=== PATIENT | male | born 1960 | race Caucasian/White ===

== ENCOUNTER 2022-12-25 18:02 | Emergency (ER) | payer MEDICARE, BC, SELFPAY ==
[2022-12-25] VITALS (10 sets, daily range): BP systolic 117–157; BP diastolic 78–99; PULSE 57–87; RESP 17–18; TEMP 36.6–36.8; O2SAT 92–98; BMI 21.6
--- NOTE | 2022-12-25 18:08 | ECG_ITS ---
APPROVED REPORT Exam: Resting ECG HR:81 bpm ECG Measurements Heart Rate 81 AXES GA 179 P 69 QRSd 86 QRS 79 QT 360 T 71 QTc 397 Conclusion SINUS RHYTHM NORMAL ECG UNCONFIRMED REPORT Electronically signed by : George Beltre MD 12/26/2022 21:28:16
--- NOTE | 2022-12-25 18:08 | XR_ITS ---
PROCEDURE INFORMATION: Exam: XR Chest Exam date and time: 12/25/2022 6:13 PM Age: 62 years old Clinical indication: Pain; Chest pressure; Additional info: Chest pain TECHNIQUE: Imaging protocol: Radiologic exam of the chest. Views: 1 view. COMPARISON: No relevant prior studies available. FINDINGS: Lungs: No evidence of pneumonia or interstitial edema. Pleural spaces: Unremarkable. No pleural effusion. No pneumothorax. Heart/Mediastinum: Unremarkable. No cardiomegaly. Bones/joints: Unremarkable. IMPRESSION: No evidence of pneumonia or interstitial edema.
[2022-12-25 18:23] LABS: Basophils % 0.6 % (0.1-2.0); Eosinophils # 0.1 K/mm3 (0.0-0.4); Hematocrit 44.5 % (42.0-52.0); Hemoglobin 14.8 g/dL (14.1-18.0); Lymphocytes # 2.3 K/mm3 (0.7-4.5); Lymphocytes % 59.2 % (10-50); Mean Corpuscular HGB Conc 33.3 g/dL (31.8-35.4); Mean Corpuscular Hemoglobin 31.2 pg (27.0-31.2); Mean Corpuscular Volume 93.7 fl (80-94); Monocytes # 0.3 K/mm3 (0.1-1.0); Monocytes % 7.8 % (1.7-9.3); Neutrophils # 1.2 K/mm3 (1.8-7.8); Neutrophils % 29.4 % (37.0-80.0); Platelet Count 172 K/mm3 (142-424); Red Blood Count 4.75 M/mm3 (4.60-6.20); Red Cell Distribution Width 13.6 % (11.5-17.5); White Blood Count 3.9 K/mm3 (4.8-10.8)
[2022-12-25 18:24] LABS: Chloride 89 mmol/L (98-107); Sodium 127 mmol/L (136-145)
[2022-12-25 18:25] LABS: Potassium 4.3 mmoL/L (3.5-5.1)
[2022-12-25 18:27] LABS: Alanine Aminotransferase 17 U/L (12-78); Anion Gap 14.3 mEq/L (5-15); Aspartate Amino Transferase 44 U/L (17-59); Blood Urea Nitrogen 8 mg/dl (9-20); Carbon Dioxide 28 mmol/L (22.0-30.0); Creatinine Clearance Estimated 87 mL/min (50-200); Estimated Glomerular Filt Rate 86 ml/min (>60); GFR (African American) 104 ML/MIN (>60)
[2022-12-25 18:28] LABS: Albumin Level 4.3 g/dl (3.5-5.0); Albumin/Globulin Ratio 1.2 (1.1-1.8); Alkaline Phosphatase 67 U/L (38-126); Bilirubin,Total 0.3 mg/dl (0.2-1.3); Calcium 9.2 mg/dl (8.4-10.2); Globulin 3.6 g/dL (1.3-3.2); Glucose 75 mg/dl (74-100); MANUAL DIFFERENTIAL MANUAL DIFFERENTIAL (MANUAL DIFF); Total Protein,Serum 7.9 g/dl (6.3-8.2)
[2022-12-25 18:33] LABS: INR 1.02 (0.9-1.1)
[2022-12-25 18:40] LABS: Troponin I < 0.01 ng/ml (0.00-0.034)
[2022-12-25 19:29] LABS: Eosinophils % 1 % (0-3); Lymphocytes % 75 % (10-50); Monocytes % 2 % (2-9); Neutrophils % 22 % (42-76); Total Cells Counted 100
[2022-12-25 19:30] LABS: Platelet Estimate Normal; RBC Morphology Normal
--- NOTE | 2022-12-25 20:11 | HMH.EDGENADL ---
Discharge Plan Disposition Chief Complaint: Chest Pain Prescriptions Prescriptions: No Action benztropine 0.5 mg Tablet 0.5 mg PO DAILY trazodone 50 mg Tablet 50 mg PO HS atorvastatin 10 mg Tablet 10 mg PO HS fluphenazine HCl 10 mg Tablet 10 mg PO BID olanzapine 10 mg Tablet 10 mg PO DAILY Colace 50 mg Capsule 100 mg PO DAILY melatonin 3 mg Tablet 3 mg PO HS PRN (Reason: Insomnia) omeprazole 40 mg Capsule,Delayed Release(Dr/Ec) 40 mg PO DAILY divalproex 500 mg Tablet Extended Release 24 Hr 500 mg PO DAILY fluticasone propionate [Flonase] 50 mcg/actuation [place],Suspension 2 spray INTRANASAL DAILY Rx Instructions: administer into each nostril prazosin 2 mg Capsule 2 mg PO HS duloxetine 20 mg Capsule,Delayed Release(Dr/Ec) 20 mg PO DAILY sodium chloride 1,000 mg Tablet,Soluble 1,000 mg PO DAILY Referrals Follow up/Referrals: Provider,Referral, [Primary Care Provider] - See instructions Carlin Gr MD [Staff Physician] - See instructions (Shortness of breath, chest pain, smoking, numerous cardiac risk factors. Heart score 3) Clinical Impressions Clinical Impression: Chest pain Discharge ED Provider: Gian Wagoner General Adult HPI General Chief complaint: Chest Pain Stated complaint: Chest tightness/pain Time Seen by Provider: 12/25/22 18:13 Mode of Arrival: EMS Source of Information: Patient and EMS Limitations: No Limitations Description of Symptoms (Recalled from ER Triage Doc. by RN): 62 M presents via EMS from [facility] after alerting staff of chest pain with chest tightness. Patient reports this radiated to his upper back and neck. Patient denies SOA. Patient was given 324 mg ASA, 1 nitro SL. Patient arrives here NAD, VSS, and no complaints of tighness or pain at this time. History of Present Illness HPI narrative: Is a 62-year-old male presenting with chest tightness. Patient states that he was sitting on the couch smoking a cigarette when he began developing chest tightness. Denies overt shortness of breath, nausea, vomiting, diaphoresis, neurologic deficits. Chest pressure was substernal, radiated to his left neck. EMS was called. Patient was given aspirin and symptoms resolved prior to arrival. Related Data Home Medications Medication Instructions Recorded Confirmed atorvastatin 10 mg tablet 10 mg PO HS Cholesterol 12/25/22 12/25/22 benztropine 0.5 mg tablet 0.5 mg PO DAILY Parkinson's disease 12/25/22 12/25/22 divalproex 500 mg tablet,extended 500 mg PO DAILY Seizure 12/25/22 12/25/22 release 24 hr docusate sodium 50 mg capsule 100 mg PO DAILY Chronic 12/25/22 12/25/22 constipation duloxetine 20 mg capsule,delayed 20 mg PO DAILY Psych 12/25/22 12/25/22 release fluphenazine HCl 10 mg tablet 10 mg PO BID Psych 12/25/22 12/25/22 fluticasone propionate 50 2 spray intranasal DAILY Allergy 12/25/22 12/25/22 mcg/actuation nasal symptoms spray,suspension melatonin 3 mg tablet 3 mg PO HS PRN Insomnia 12/25/22 12/25/22 olanzapine 10 mg tablet 10 mg PO DAILY Psych 12/25/22 12/25/22 omeprazole 40 mg capsule,delayed 40 mg PO DAILY Acid reflux 12/25/22 12/25/22 release prazosin 2 mg capsule 2 mg PO HS RLS 12/25/22 12/25/22 sodium chloride 1,000 mg soluble 1,000 mg PO DAILY Chronic 12/25/22 12/25/22 tablet hyponatremia trazodone 50 mg tablet 50 mg PO HS Insomnia 12/25/22 12/25/22 Allergies Allergy/AdvReac Type Severity Reaction Status Date / Time No Known Allergies Allergy Verified 12/25/22 18:07 [facility] Disclaimer: The information contained in this section may have been updated after the patient was seen, as this information can be updated by other users. Medical History (Updated 12/25/22 @ 20:15 by Gian Wagoner MD) Acid reflux Anxiety Chronic constipation Chronic hyponatremia Chronic pain Epilepsy High cholesterol Insomnia MDD (major depressive disorder) Basil
--- NOTE | 2022-12-25 21:06 | PC.NURSE ---
PT RECIEVED CUP OF TATOR SOUP AND SANDWHICH WITH A PEPSI TO DRINK
[2022-12-25 21:37] LABS: Troponin I 0.03 ng/ml (0.00-0.034)
--- NOTE | 2022-12-25 22:08 | PC.NURSE ---
Spoke with Brigitte Allan advised she would try to find him a ride back.
--- NOTE | 2022-12-25 22:30 | PC.NURSE ---
Called [facility] again for a ride update Brigitte advised I'm still in the process
--- NOTE | 2022-12-25 23:21 | PC.NURSE ---
[facility]any Allan called us back to report her production control supervisor is unable to collect pt and asking for an officer to slate picker pt. I advised them they may call dispatch to inquire of an officer taxiing pt to [facility].
--- NOTE | 2022-12-26 00:03 | PC.NURSE ---
Rounded on pt, cleared his table of cups & trash. Removed IV, dressing applied. Pt requesting another cup of coffee. Will obtain is MD allows. [facility] Allan called and stated I left a voicemail for dispatch .
--- NOTE | 2022-12-26 00:05 | PC.NURSE ---
[employer] called to ask if an officer could collect pt, they will ask and call back.
--- NOTE | 2022-12-26 00:10 | PC.NURSE ---
[employer] notified us that an officer is in route to taxi pt back to [facility].
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
== END 2022-12-26 00:20 | disposition home or self-care (01) ==
PROVIDERS: Emergency Provider Emergency Medicine
DX: R07.9 Chest pain, unspecified (principal); M54.2 Cervicalgia; M54.6 Pain in thoracic spine; G40.919 Epilepsy, unspecified, intractable, without status epilepticus; K21.9 Gastro-esophageal reflux disease without esophagitis; F41.9 Anxiety disorder, unspecified; E87.1 Hypo-osmolality and hyponatremia; E78.00 Pure hypercholesterolemia, unspecified; F32.9 Major depressive disorder, single episode, unspecified; G20 Parkinson's disease; F25.9 Schizoaffective disorder, unspecified; F17.210 Nicotine dependence, cigarettes, uncomplicated
CPT/HCPCS: 71045; 80053; 84484; 85007; 85025; 85610; 85730; 93005; 96360; 99285

== ENCOUNTER 2023-01-15 21:02 | Observation (INO) | payer MEDICARE, BC, SELFPAY ==
[2023-01-15 21:02] VITALS: BP 160/115; PULSE 77; RESP 18; TEMP 37.2; O2SAT 99; BMI 25.1
--- NOTE | 2023-01-15 21:14 | XR_ITS ---
PROCEDURE INFORMATION: Exam: XR Chest Exam date and time: 01/15/2023 9:24 PM Age: 62 years old Clinical indication: Pain; Angina pectoris; Additional info: Chest pain TECHNIQUE: Imaging protocol: Radiologic exam of the chest. Views: 1 view. COMPARISON: CR XR CHEST PORTABLE 12/25/2022 6:13 PM FINDINGS: Lungs: Unremarkable. No consolidation. Pleural spaces: Unremarkable. No pleural effusion. No pneumothorax. Heart/Mediastinum: Aortic atherosclerosis. No cardiomegaly. Bones/joints: Unremarkable. IMPRESSION: No acute findings.
--- NOTE | 2023-01-15 21:14 | ECG_ITS ---
APPROVED REPORT Exam: Resting ECG HR:76 bpm ECG Measurements Heart Rate 76 AXES NC 181 P 73 QRSd 90 QRS 82 QT 366 T 78 QTc 397 Conclusion SINUS RHYTHM NORMAL ECG UNCONFIRMED REPORT Electronically signed by : George Beltre MD 01/16/2023 07:09:37
[2023-01-15 21:30] VITALS: BP 158/105; PULSE 71; O2SAT 100
--- NOTE | 2023-01-15 21:56 | PC.NURSE ---
Dr. River at [facility]
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
[2023-01-15 22:00] VITALS: BP 145/112; PULSE 76; O2SAT 93
[2023-01-15 22:05] LABS: Basophils % 0.4 % (0.1-2.0); Eosinophils # 0.2 K/mm3 (0.0-0.4); Eosinophils % 3.6 % (0.1-12.0); Hematocrit 42.3 % (42.0-52.0); Hemoglobin 13.6 g/dL (14.1-18.0); Lymphocytes % 48.3 % (10-50); Mean Corpuscular HGB Conc 32.1 g/dL (31.8-35.4); Mean Corpuscular Hemoglobin 30.4 pg (27.0-31.2); Mean Corpuscular Volume 94.9 fl (80-94); Mean Platelet Volume 7.7 fl (7.4-10.4); Monocytes # 0.4 K/mm3 (0.1-1.0); Monocytes % 9.1 % (1.7-9.3); Neutrophils # 1.6 K/mm3 (1.8-7.8); Neutrophils % 38.7 % (37.0-80.0); Platelet Count 183 K/mm3 (142-424); Red Blood Count 4.46 M/mm3 (4.60-6.20); Red Cell Distribution Width 13.6 % (11.5-17.5); White Blood Count 4.2 K/mm3 (4.8-10.8)
[2023-01-15 22:06] LABS: Chloride 87 mmol/L (98-107)
[2023-01-15 22:07] LABS: Sodium 123 mmol/L (136-145)
[2023-01-15 22:09] LABS: Alanine Aminotransferase 19 U/L (12-78); Albumin Level 4.1 g/dl (3.5-5.0); Alkaline Phosphatase 73 U/L (38-126); Aspartate Amino Transferase 41 U/L (17-59); Bilirubin,Total 0.2 mg/dl (0.2-1.3); Blood Urea Nitrogen 9 mg/dl (9-20); Carbon Dioxide 33 mmol/L (22.0-30.0); Creatinine Clearance Estimated 86 mL/min (50-200); Estimated Glomerular Filt Rate 76 ml/min (>60); GFR (African American) 92 ML/MIN (>60); Potassium 4.2 mmoL/L (3.5-5.1)
[2023-01-15 22:10] LABS: Albumin/Globulin Ratio 1.2 (1.1-1.8); Anion Gap 7.2 mEq/L (5-15); Globulin 3.4 g/dL (1.3-3.2); Glucose 51 mg/dl (74-100); Total Protein,Serum 7.5 g/dl (6.3-8.2)
--- NOTE | 2023-01-15 22:15 | PC.NURSE ---
Pt given beverage by Mac Anna RN
[2023-01-15 22:23] LABS: Troponin I < 0.01 ng/ml (0.00-0.034)
[2023-01-15 22:30] VITALS: BP 170/103; PULSE 62; O2SAT 98
[2023-01-15 23:00] VITALS: BP 161/109; PULSE 71; O2SAT 95
--- NOTE | 2023-01-15 23:05 | PC.NURSE ---
PATIENT ADMITTED TO [facility] WITH DX OF HYPONATREMIA TO SERVICE OF HOSPITALIST.
[2023-01-15 23:13] LABS: Coronavirus 19, PCR Not Detected (NotDetected); Influenza A, PCR Not Detected (NotDetected); Influenza B, PCR Not Detected (NotDetected)
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
--- NOTE | 2023-01-15 23:57 | PC.NURSE ---
report called to Anya JUNE
[2023-01-16] VITALS (7 sets, daily range): BP systolic 125–180; BP diastolic 44–112; PULSE 57–73; RESP 16–19; TEMP 36.2–37.2; O2SAT 93–99; BMI 25.2
--- NOTE | 2023-01-16 00:11 | PC.NURSE ---
PT ARRIVED TO FLOOR AT THIS TIME
[2023-01-16 00:52] LABS: POC Glucose,Bedside 74 (70-110)
[2023-01-16 01:28] LABS: Troponin I < 0.01 ng/ml (0.00-0.034)
--- NOTE | 2023-01-16 03:34 | PC.NURSE ---
RN unable to confirm medication list, Patient does not know medications.
--- NOTE | 2023-01-16 04:51 | PC.NURSE ---
Patient arrived from ER this shift. Has had multiple snacks and drinks. Admission was done except for medication, patient does not know current medications and does not have a list. No issues were stated by patient
[2023-01-16 06:25] LABS: Basophils % 0.4 % (0.1-2.0); Eosinophils # 0.2 K/mm3 (0.0-0.4); Eosinophils % 6.4 % (0.1-12.0); Hematocrit 44.1 % (42.0-52.0); Hemoglobin 14.1 g/dL (14.1-18.0); Lymphocytes # 1.6 K/mm3 (0.7-4.5); Lymphocytes % 46.4 % (10-50); Mean Corpuscular HGB Conc 31.9 g/dL (31.8-35.4); Mean Corpuscular Hemoglobin 30.5 pg (27.0-31.2); Mean Corpuscular Volume 95.7 fl (80-94); Mean Platelet Volume 7.7 fl (7.4-10.4); Monocytes # 0.3 K/mm3 (0.1-1.0); Monocytes % 8.5 % (1.7-9.3); Neutrophils # 1.3 K/mm3 (1.8-7.8); Neutrophils % 38.2 % (37.0-80.0); Platelet Count 198 K/mm3 (142-424); Red Blood Count 4.61 M/mm3 (4.60-6.20); Red Cell Distribution Width 13.6 % (11.5-17.5); White Blood Count 3.5 K/mm3 (4.8-10.8)
[2023-01-16 06:54] LABS: Troponin I < 0.01 ng/ml (0.00-0.034)
[2023-01-16 07:01] LABS: Alanine Aminotransferase 15 U/L (12-78); Albumin Level 3.8 g/dl (3.5-5.0); Albumin/Globulin Ratio 1.3 (1.1-1.8); Alkaline Phosphatase 64 U/L (38-126); Anion Gap 7.4 mEq/L (5-15); Aspartate Amino Transferase 34 U/L (17-59); Bilirubin,Total 0.2 mg/dl (0.2-1.3); Blood Urea Nitrogen 9 mg/dl (9-20); Calcium 8.9 mg/dl (8.4-10.2); Carbon Dioxide 34 mmol/L (22.0-30.0); Chloride 96 mmol/L (98-107); Creatinine Clearance Estimated 86 mL/min (50-200); Estimated Glomerular Filt Rate 76 ml/min (>60); GFR (African American) 92 ML/MIN (>60); Globulin 2.9 g/dL (1.3-3.2); Glucose 92 mg/dl (74-100); Potassium 4.4 mmoL/L (3.5-5.1); Sodium 133 mmol/L (136-145); Total Protein,Serum 6.7 g/dl (6.3-8.2)
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
[2023-01-16 08:14] LABS: Chloride 99 mmol/L (98-107); Potassium 4.2 mmoL/L (3.5-5.1); Sodium 133 mmol/L (136-145)
[2023-01-16 08:17] LABS: Anion Gap 7.2 mEq/L (5-15); Blood Urea Nitrogen 8 mg/dl (9-20); Carbon Dioxide 31 mmol/L (22.0-30.0); Creatinine Clearance Estimated 78 mL/min (50-200); Estimated Glomerular Filt Rate 68 ml/min (>60); GFR (African American) 83 ML/MIN (>60)
[2023-01-16 08:18] LABS: Calcium 8.7 mg/dl (8.4-10.2); Glucose 81 mg/dl (74-100)
[2023-01-16 08:49] LABS: Thyroid Stimulating Hormone 1.64 uIU/mL (0.465-4.68)
--- NOTE | 2023-01-16 11:37 | SW/DCPLANNER ---
Addendum entered by Lilia Russell 01/17/23 14:39: I have arranged [employer] for this patient. Addendum entered by Lilia Russell 01/17/23 13:37: The plan for this patient is to discharge back to [facility] today: I will arrange [employer]. Original Note: Patient currently resides at [facility]. The plan for this patient is to return back to [facility] once medically stable for discharge. I have updated Tracey nino/ [facility] that patient may be ready for discharge tomorrow.
--- NOTE | 2023-01-16 11:47 | HMH.PHAINT1 ---
Pharmacy Intervention Comments: Patient's home medications reviewed and verified using fax from [facility]. -Matt Munguia, PharmD student
[2023-01-16 12:26] LABS: Blood Urea Nitrogen 9 mg/dl (9-20); Calcium 9.1 mg/dl (8.4-10.2); Carbon Dioxide 36 mmol/L (22.0-30.0); Chloride 96 mmol/L (98-107); Creatinine Clearance Estimated 86 mL/min (50-200); Estimated Glomerular Filt Rate 76 ml/min (>60); GFR (African American) 92 ML/MIN (>60); Glucose 86 mg/dl (74-100); Potassium 5.1 mmoL/L (3.5-5.1)
[2023-01-16 12:35] LABS: Anion Gap 6.1 mEq/L (5-15); Sodium 133 mmol/L (136-145)
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
[2023-01-16 17:20] LABS: Chloride 95 mmol/L (98-107); Sodium 132 mmol/L (136-145)
[2023-01-16 17:23] LABS: Blood Urea Nitrogen 11 mg/dl (9-20); Carbon Dioxide 35 mmol/L (22.0-30.0); Creatinine Clearance Estimated 72 mL/min (50-200); Estimated Glomerular Filt Rate 62 ml/min (>60); GFR (African American) 75 ML/MIN (>60); Glucose 88 mg/dl (74-100)
[2023-01-17] VITALS: BP 127/78; PULSE 75; RESP 16; TEMP 36.9; O2SAT 93
[2023-01-17 04:00] VITALS: BP 90/54; PULSE 72; RESP 16; TEMP 36.3; O2SAT 93; BMI 25.2
--- NOTE | 2023-01-17 04:19 | PC.NURSE ---
Patient has rested tonight. Has been up drinking coffee, pop, and eating snacks. Patient is concerned about the amount of fluids he is getting. RN informed him of why the fluids are needed. Patient is agreeable to the plan. No other issues were stated by patient
[2023-01-17 06:22] LABS: Basophils % 0.3 % (0.1-2.0); Eosinophils # 0.2 K/mm3 (0.0-0.4); Eosinophils % 4.3 % (0.1-12.0); Hematocrit 40.4 % (42.0-52.0); Hemoglobin 13.2 g/dL (14.1-18.0); Lymphocytes # 1.6 K/mm3 (0.7-4.5); Lymphocytes % 43.8 % (10-50); Mean Corpuscular HGB Conc 32.6 g/dL (31.8-35.4); Mean Corpuscular Hemoglobin 30.7 pg (27.0-31.2); Mean Corpuscular Volume 94.2 fl (80-94); Mean Platelet Volume 7.9 fl (7.4-10.4); Monocytes # 0.5 K/mm3 (0.1-1.0); Monocytes % 14.2 % (1.7-9.3); Neutrophils # 1.4 K/mm3 (1.8-7.8); Neutrophils % 37.4 % (37.0-80.0); Platelet Count 172 K/mm3 (142-424); Red Blood Count 4.29 M/mm3 (4.60-6.20); Red Cell Distribution Width 13.6 % (11.5-17.5); White Blood Count 3.7 K/mm3 (4.8-10.8)
[2023-01-17 06:33] LABS: Anion Gap 7.3 mEq/L (5-15); Blood Urea Nitrogen 10 mg/dl (9-20); Calcium 8.8 mg/dl (8.4-10.2); Carbon Dioxide 32 mmol/L (22.0-30.0); Chloride 95 mmol/L (98-107); Creatinine Clearance Estimated 86 mL/min (50-200); Estimated Glomerular Filt Rate 76 ml/min (>60); GFR (African American) 92 ML/MIN (>60); Glucose 93 mg/dl (74-100); Potassium 3.3 mmoL/L (3.5-5.1); Sodium 131 mmol/L (136-145)
[2023-01-17 07:50] VITALS: BP 134/90; PULSE 59; RESP 16; TEMP 36.9; O2SAT 95
[2023-01-17 08:00] VITALS: O2SAT 95
[2023-01-17 11:08] VITALS: BP 166/90; PULSE 69; RESP 16; TEMP 37.2; O2SAT 97
[2023-01-17 11:31] LABS: Sodium, Urine 62 mmol/L (Not Estab.)
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
--- NOTE | 2023-01-17 13:57 | PC.NURSE ---
report called to nitesh at this time
[2023-01-19 03:38] LABS: Osmolality, Urine 203 mOsmol/kg (.)
== END 2023-01-17 15:31 | disposition home or self-care (01) ==
LOC: ER 23:03 → 2ND 23:55
PROVIDERS: Internal Medicine; Nurse Practitioner Family; Admitting Provider Internal Medicine; Emergency Provider Student in an Organized Health Care Education/Training Program; PCP Emergency Medicine; Visit Provider Internal Medicine
DX: E87.1 Hypo-osmolality and hyponatremia (principal); S09.8XXA Other specified injuries of head, initial encounter; E22.2 Syndrome of inappropriate secretion of antidiuretic hormone; S20.219A Contusion of unspecified front wall of thorax, initial encounter; G40.919 Epilepsy, unspecified, intractable, without status epilepticus; F32.9 Major depressive disorder, single episode, unspecified; F25.9 Schizoaffective disorder, unspecified; Y04.0XXA Assault by unarmed brawl or fight, initial encounter; Z79.899 Other long term (current) drug therapy
CPT/HCPCS: G0378; 36415; 71045; 80048; 80053; 82533; 82962; 83930; 83935; 84300; 84443; 84484; 85025; 87636; 93005; 99285

== ENCOUNTER 2025-04-08 09:05 | Inpatient (IN) | payer MEDICARE, OTHER, SELFPAY ==
[2025-04-08] VITALS (22 sets, daily range): BP systolic 91–152; BP diastolic 55–101; PULSE 58–106; RESP 13–23; TEMP 35.7–36.9; O2SAT 88–99; BMI 27.1; BMI 24.5
--- NOTE | 2025-04-08 09:09 | ECG_ITS ---
APPROVED REPORT Exam: Resting ECG HR:66 bpm ECG Measurements Heart Rate 66 AXES CO 182 P 77 QRSd 95 QRS 77 QT 416 T 82 QTc 429 Conclusion Normal sinus rhythm Normal axis Normal intervals No STEMI Electronically signed by : José Miguel Palma, 04/08/2025 17:01:39
--- NOTE | 2025-04-08 09:18 | XR_ITS ---
FINAL REPORT CLINICAL HISTORY: Encephalopathy COMPARISON: 01/15/2023 FINDINGS: A portable view of the chest was obtained. Cardiac and mediastinal silhouettes are within normal limits. There is a subtle right upper lobe opacity present, and pneumonia is not excluded. There is no pleural effusion or pneumothorax. IMPRESSION: Subtle right upper lobe opacity, pneumonia not excluded. Consider PA and lateral views of the chest for further evaluation. Reviewed, Interpreted and Dictated by Annabel Greco MD Transcribed by Rosetta Cuenca Authenticated and [facility]
--- NOTE | 2025-04-08 09:22 | CT_ITS ---
FINAL REPORT TECHNIQUE: Thin section axial images were obtained from skull base to vertex without contrast. Coronal and sagittal reconstruction images were obtained from the axial data. Exam was performed using dose reduction techniques such as automated exposure control, adjustment of the mA and kV according to patient size, and use of iterative reconstruction technique. This study was performed with techniques to keep radiation doses as low as reasonably achievable (ALARA). Individualized dose reduction techniques using automated exposure control or adjustment of mA and/or kV according to the patient's size were employed. CLINICAL HISTORY: Encephalopathy COMPARISON: None FINDINGS: There is no mass effect or midline shift. There is no hydrocephalus. There is no acute intracranial hemorrhage or large infarct. There is a chronic right subdural hygroma measuring 5 mm in thickness. The posterior fossa is without acute abnormality. The basilar cisterns are preserved. The soft tissues are without acute abnormality. No acute osseous abnormality is identified. IMPRESSION: No acute hemorrhage or large infarct is identified. Reviewed, Interpreted and Dictated by Annabel Greco MD Transcribed by Rosetta Cuenca Authenticated and [facility]
[2025-04-08 09:28] LABS: Hematocrit 39.0 % (42.0-52.0); Hemoglobin 13.5 g/dL (14.1-18.0); Immature Granulocytes % 0.3 %; Mean Corpuscular HGB Conc 34.6 g/dL (31.8-35.4); Mean Corpuscular Hemoglobin 31.3 pg (27.0-31.2); Mean Corpuscular Volume 90.5 fl (80-94); Nucleated Red Blood Cells % 0 %; Platelet Count 180 K/mm3 (142-424); Red Blood Count 4.31 M/mm3 (4.60-6.20); Red Cell Distribution Width-SD 40.2 fL; White Blood Count 3.3 K/mm3 (4.8-10.8)
--- NOTE | 2025-04-08 09:28 | PC.NURSE ---
called respiratory about the VBG
--- NOTE | 2025-04-08 09:28 | PC.NURSE ---
pt is starting to arouse more. i attempted to get a rectal temp and straight cath and he adamantly refused @ this time.
[2025-04-08 09:29] LABS: Lactate Venous 1.2 mmol/L (0.4-2.0); VBG HCO3 24.5 mmol/L (23-30); VBG PCO2 57.0 mmol/L (35-51); VBG PH 7.25 mmol/L (7.31-7.41); VBG PO2 44.1 mmol/L (28-40)
--- NOTE | 2025-04-08 09:33 | PC.NURSE ---
fsbs 99
--- NOTE | 2025-04-08 09:46 | PC.NURSE ---
pt allowed staff to obtain a cathed urine sample
[2025-04-08 09:51] LABS: Microscopic, Urine URINE MICROSCOPIC (MICROSCOPIC)
[2025-04-08 09:57] LABS: Bilirubin,Urine Negative (Negative); Color,Urine YELLOW (Yellow); Glucose,Urine (UA) Negative (Negative); Ketones,Urine Negative (Negative); Leukocyte Esterase,Urine Negative (Negative); PH,Urine 7.0 (5.0-8.5); Protein,Urine Negative (Negative); Specific Gravity, Urine 1.015 (1.005-1.030); Urobilinogen,Urine 1.0 EU/dl (0.2)
--- NOTE | 2025-04-08 10:04 | PC.NURSE ---
attempted to call shayla rodrigez to obtain pts baseline mental status. they havent answered
[2025-04-08 10:06] LABS: Free T4 (Free Thyroxine) 1.08 ng/dl (0.78-2.19)
[2025-04-08] MEDS: IPRATROPIUM/ALBUTEROL 3 ML NEB 9 ML IH (10:07)
[2025-04-08] MEDS: METHYLPREDNISOLONE SOD SUCC 125MG VIAL 125 MG IV (10:07)
[2025-04-08 10:11] LABS: Amphetamine/Metha Screen,Urine Negative ng/ml (<1000)
[2025-04-08 10:12] LABS: Barbiturates Screen,Urine Negative ng/ml (<200); Benzodiazepines Screen,Urine Negative ng/ml (<200)
[2025-04-08 10:14] LABS: Methadone Screen,Urine Negative ng/ml (<300)
[2025-04-08 10:15] LABS: Opiate Screen,Urine Negative ng/ml (<300); Phencyclidine Screen,Urine Negative ng/ml (<25)
[2025-04-08 10:18] LABS: Bacteria,Urine Trace /lpf; WBC,Urine Occasional #/hpf (0-3)
--- NOTE | 2025-04-08 10:34 | PC.NURSE ---
spoke to respiratory regarding bipap
[2025-04-08 10:38] LABS: Hepatitis C Ab Qual. W/ RFX NEGATIVE (Negative)
--- NOTE | 2025-04-08 10:42 | PC.NURSE ---
respiratory in room, bipap in place
--- NOTE | 2025-04-08 10:44 | HMH.EDGENADL ---
Discharge Plan Disposition Patient Disposition: Admitted Condition: Fair Clinical Impressions Clinical Impression: Encephalopathy acute, Acute hypercapnic respiratory failure Discharge ED Provider: José Miguel Palma Adult HPI General Chief complaint: Altered Mental Status Stated complaint: AMS Time Seen by Provider: 04/08/25 09:17 Mode of Arrival: EMS Source of Information: EMS Description of Symptoms (Recalled from ER Triage Doc. by RN): pt brought in for altered mental status. he is lethargic and a poor historian. he is unable to answer any questions. ems gave narcan en route with no change to mental status. unsure of how long he has been altered. was found this morning History of Present Illness HPI narrative: This is a 65-year-old male patient, with past medical history of schizophrenia, chronic hyponatremia, epilepsy, major depressive disorder, and chronic tobacco abuse, who is presenting to the emergency department today for evaluation of encephalopathy. The patient is a resident of [facility]. He reportedly is normally very alert and interactive and jokes frequently while at baseline. Other than this his baseline mental status is relatively unclear. He was found this morning by employees of the facility to be acutely altered and somnolent with half of his body in the bed and half of his body out of the bed. He was brought here for further evaluation of this encephalopathy. The patient is unable to interact with any sort of meaningful history. Related Data Home Medications ?Medication ?Instructions ?Recorded ?Confirmed atorvastatin 10 mg tablet 10 mg PO HS Cholesterol 12/25/22 01/16/23 benztropine 0.5 mg tablet 0.5 mg PO BID Parkinson's disease 12/25/22 01/16/23 divalproex 500 mg tablet,extended 500 mg PO TID Seizures 12/25/22 01/16/23 release 24 hr docusate sodium 50 mg capsule 100 mg PO BID Chronic constipation 12/25/22 01/16/23 fluticasone propionate 50 2 spray intranasal DAILY Allergy 12/25/22 01/16/23 mcg/actuation nasal symptoms spray,suspension melatonin 3 mg tablet 6 mg PO HS sleep 12/25/22 01/16/23 omeprazole 40 mg capsule,delayed 40 mg PO DAILY Acid reflux 12/25/22 01/16/23 release prazosin 2 mg capsule 2 mg PO HS restless leg syndrome 12/25/22 01/16/23 albuterol 90 mcg/actuation aerosol 90 mcg inhalation Q4H PRN 01/16/23 01/16/23 inhaler Shortness Of Breath magnesium hydroxide 400 mg/5 mL 30 ml PO BID PRN Constipation 01/16/23 01/16/23 oral suspension (Milk of Magnesia) ondansetron 4 mg disintegrating 4 mg PO TID PRN Nausea 01/16/23 01/16/23 tablet Previous Rx's ?Medication ?Instructions ?Recorded olanzapine 20 mg tablet See Rx Instructions .Route 02/16/23 .COMPLEX #30 ea Allergies Allergy/AdvReac Type Severity Reaction Status Date / Time No Known Allergies Allergy Verified 12/25/22 18:07 [facility] Disclaimer: The information contained in this section may have been updated after the patient was seen, as this information can be updated by other users. Medical History (Updated 04/08/25 @ 12:30 by José Miguel Palma DO) Chronic pain Epilepsy Symptoms of allergic rhinioconjunctivitis Schizo affective schizophrenia Acid reflux Parkinson disease MDD (major depressive disorder) Anxiety Insomnia High cholesterol Chronic constipation Chronic hyponatremia Surgical History (Updated 12/25/22 @ 19:34 by Marco Gonzales RN) No history of previous surgery Family History (Updated 12/25/22 @ 19:35 by Marco Gonzales RN) Other No significant family history Social History (Updated 01/16/23 @ 00:42 by Anya Levin RN) Smoking Status: Unknown if ever smoked alcohol intake: former current occupational status: disabled Travel in the last 8 weeks?: None caregiver/support person: Yes housing: assisted living facility lives independently: Yes service: No residential: No Have you lived/traveled outside [place] in past 30 days?: No Contact w/someone who lives/traveled outside [place] past 30 days?: No Exposure to someone with infectious disease in past 14 days?: No Do you have a fever (greater than 100.4 F or 38 C)?: No Have you tested positive for COVID-19?: No Exposed to someone with COVID-19 in past 14 days?: No Do you have a sore throat?: No Do you have a cough?: No Do you have any weakness?: No Do you have any diarrhea?: No Are you experiencing any unusual bleeding?: No Do you have any muscle aches/pain?: No Do you have any abdominal pain?: No Are you experiencing loss of taste or smell?: No Other Medical History Have you received the Flu Vaccine for this season: No Have you received the Pneumonia Vaccine: No ROS Obtained: Yes unobtainable due to mental status Physical Exam General General appearance: other (See MDM) Respiratory Respiratory exam: Present other (See MDM) Cardiovascular Cardiovascular exam: Present other (See MDM) Neurological Exam Neurological exam: Present other (See MDM) Medical Decision Making Medical Records Medical records reviewed: Yes I reviewed the patient's medical records. Screening: Per USPSTF and CDC recommendations, given the prevalence of disease in our region, it is our hospital?s policy to screen for HIV and viral Hepatitis for all patients aged 18 and over and those with ongoing risk factors. Greg Inquiry Pt receiving controlled substance: No Greg was queried for this patient: No Vital Signs: 04/08/25 09:10 04/08/25 10:09 04/08/25 10:30 Temperature 97.2 F L Temperature Source Tympanic Pulse Rate 72 95 H Pulse Rate [Right] 83 Respiratory Rate 14 14 Blood Pressure 115/77 127/85 Blood Pressure [Right Arm] 102/80 L Blood Pressure Mean 82 Blood Pressure Mean [Right Arm] 87 02 Sat by Pulse Oximetry 96 96 96 Oxygen Delivery Method Room Air Fraction of Inspired Oxygen 04/08/25 10:59 04/08/25 11:00 04/08/25 11:31 Temperature Temperature Source Pulse Rate 72 Pulse Rate [Right] Respiratory Rate 16 13 Blood Pressure 106/79 L 152/99 H Blood Pressure [Right Arm] Blood Pressure Mean Blood Pressure Mean [Right Arm] 02 Sat by Pulse Oximetry 95 Oxygen Delivery Method Fraction of Inspired Oxygen 21 Lab Data Lab Results 04/08/25 09:10: WBC 3.3 L, RBC 4.31 L, Hgb 13.5 L, Hct 39.0 L, MCV 90.5, MCH 31.3 H, MCHC 34.6, RDW 12.0, Plt Count 180, MPV 8.9, Neut % (Auto) 34.3 L, Lymph % (Auto) 51.4 H, [place] % (Auto) 12.2 H, Eos % (Auto) 1.5, Baso % (Auto) 0.3, Neut # (Auto) 1.1 L, Lymph # (Auto) 1.7, [place] # (Auto) 0.4, Eos # (Auto) 0.1, Baso # (Auto) 0.0, Sodium 128 L, Potassium 5.1, Chloride 92 L, Carbon Dioxide 28, Anion Gap 13.1, BUN 10, Creatinine 1.20, Estimated Creat Clear 81, Estimated GFR 61, Est GFR ( Amer) 74, Glucose 106 H, Calcium 9.1, Total Bilirubin 0.5, AST 31, ALT 16, Alkaline Phosphatase 74, Total Creatine Kinase 186 H, Troponin I < 0.01, Total Protein 6.9, Albumin 3.8, Globulin 3.1, Albumin/Globulin Ratio 1.2, Free T4 1.08, Salicylates < 1.0 L, Acetaminophen < 10 L, Total Valproic Acid 75.5, Plasma/Serum Alcohol < 10, HCV Ab LAI w/Rflx PCR Qn Negative, HIV Ag/Ab Combo Qual Negative 04/08/25 09:18: VBG pH 7.25 L, VBG pCO2 57.0 H, VBG pO2 44.1 H, VBG HCO3 24.5, VBG Total CO2 26.3, VBG O2 Saturation 73.6 H, VBG Base Excess -2.6 L, VBG Lactic Acid 1.2 04/08/25 09:45: Urine Color Yellow, Urine Appearance Clear, Urine pH 7.0, Ur Specific [place] 1.015, Urine Protein Negative, Urine Glucose (UA) Negative, Urine Ketones Negative, Urine Blood Negative, Urine Nitrate Negative, Urine Bilirubin Negative, Urine Urobilinogen 1.0, Ur Leukocyte Esterase Negative, Urine RBC None, Urine WBC Occasional, Ur Squamous Epith Cells None, Urine Bacteria Trace, Urine Opiates Screen Negative, Urine Methadone Screen Negative, Ur Barbituates Screen Negative, Ur Phencyclidine Scrn Negative, Ur Amphetamines Screen Negative, U Benzodiazepines Scrn Negative, Urine Cocaine Screen Negative, U Marijuana (THC) Screen Positive H 04/08/25 11:15: VBG pH 7.27 L, VBG pCO2 67.0 H, VBG pO2 34.2, VBG HCO3 29.9, VBG Total CO2 32.0 H, VBG O2 Saturation 60.3, VBG Base Excess 3.0 H, VBG Lactic Acid 1.4 04/08/25 09:10 04/08/25 09:10 Orders (Tests/Meds): ED MEDICATIONS Generic Name Dose Route Start Last Admin Trade Name Naomi PRN Reason Stop Dose Admin Albuterol/Ipratropium 3 ml 04/08/25 11:45 Ipratropium/Albuterol 3 Ml [facility] 05/08/25 11:44 Q4H ENEDELIA Budesonide 0.5 mg 04/08/25 11:45 Budesonide 0.5mg/2ml [facility] 05/08/25 11:44 BIDRT ENEDELIA Discontinued Medications Generic Name Dose Route Start Last Admin Trade Name Freq PRN Reason Stop Dose Admin Albuterol/Ipratropium 9 ml 04/08/25 09:36 04/08/25 10:07 Ipratropium/Albuterol 3 Ml [facility] 04/08/25 09:37 9 ml ONCE ONE Administration Methylprednisolone Sodium Succinate 125 mg 04/08/25 09:36 04/08/25 10:07 Methylprednisolone Sod Succ 125mg Vial IV 04/08/25 09:37 125 mg ONCE ONE Administration ORDERS Category Date Time Status CT head/brain wo con Stat Cat Scan 04/08/25 09:22 Completed Pulmonology Consult [Consult to Pulmonology] [CONS] Cons 04/08/25 11:41 Active Routine CXR --portable [XR chest portable] Stat Exams 04/08/25 09:18 Completed Acetaminophen Stat Lab 04/08/25 09:10 Results Ammonia Stat Lab 04/08/25 11:46 Received CBC w/Auto Diff [Complete Blood Count Auto Diff] Stat Lab 04/08/25 09:10 Completed CK [Creatine Kinase] Stat Lab 04/08/25 09:10 Results CMP [Comprehensive Metabolic Panel] Stat Lab 04/08/25 09:10 Results Ethanol [Ethyl Alcohol] Stat Lab 04/08/25 09:10 Completed Free T4 (Free Thyroxine) Stat Lab 04/08/25 09:10 Completed HIV Combo Stat Lab 04/08/25 09:10 Completed Hepatitis C Ab Qual. W/ RFX Stat Lab 04/08/25 09:10 Completed Mini Respiratory Panel Stat Lab 04/08/25 11:45 Received Salicylate Stat Lab 04/08/25 09:10 Results TSH [Thyroid Stimulating Hormone] Stat Lab 04/08/25 09:10 Results Troponin I Q3H Lab 04/08/25 12:30 Ordered Troponin I Q3H Lab 04/08/25 15:30 Ordered Troponin I Stat Lab 04/08/25 09:10 Results UDS [Drug Screen,Urine] Stat Lab 04/08/25 09:45 Completed Urinalysis and Microscopic Stat Lab 04/08/25 09:45 Completed Valproic Acid, (Depakene) Stat Lab 04/08/25 09:10 Completed VBG [Venous Blood Gas] Stat RT 04/08/25 09:18 Completed VBG [Venous Blood Gas] Stat RT 04/08/25 11:15 Completed Medical Decision Narrative: In summary, this is a 65-year-old male patient who is presenting to the emergency department today for evaluation of encephalopathy. The patient has a past medical history of tobacco abuse, chronic hyponatremia, major depressive disorder, epilepsy. On initial evaluation of the patient he was disoriented and somnolent. He was saturating well on room air and would move all 4 extremities upon stimulation. He is afebrile and nontoxic in appearance. His pupils are equal round and reactive to light. He will follow commands and will squeeze my fingers bilaterally, he will lift his legs up off the bed on command. He is able to tell me his name. He does not have any evidence of facial drooping. He has significant wheezing appreciated in his bilateral lung marsh. His abdomen is soft and nontender. Differential diagnosis includes alcohol intoxication, medication overuse, ACS/HI, hypercapnic respiratory failure, electrolyte derangement, acute kidney injury, urinary tract infection, hypothyroidism, hyperthyroidism, salicylate overdose, Tylenol overdose, among others Workup was initiated with hematologic labs as well as an EKG and a CT scan of the head. EKG was personally interpreted by me and demonstrates normal sinus rhythm with a rate of 66 bpm, normal axis, no WI prolongation, narrow QRS, no QTc prolongation. No ST elevation or depression. No overt signs of ischemia or arrhythmia. Preliminary labs consistent with VBG and CBC which were personally interpreted by me. There is no leukocytosis or transfusional anemia. On his blood gas he has a pH of 7.25 with a pCO2 of 57. This is likely contributing to his depressed mental status and somnolence. Given that he is wheezing on exam and has a history of tobacco abuse he could have undiagnosed COPD. Therefore I treated him with 125 mg of Solu-Medrol and 3 DuoNebs. Remainder of labs resulted and showed chronic hyponatremia, mild hypochloremia, no significant elevation of creatinine kinase, troponin less than 0.01. I did additionally send off a valproic acid level and an ammonia level since the patient is on Depakote at baseline In the meantime we obtained a CT scan of the head. This was personally interpreted by me demonstrates no large intracranial hemorrhages. On repeat assessment the patient he was still wheezing after DuoNeb therapy. He remained to have a depressed mental status. At this time I made the empiric decision to put the patient on BiPAP. Patient was monitored on BiPAP over the course of an hour, after 1 hour He ripped the mask off himself at this time and was still quite somnolent. He was a bit more alert and was able to formulate words in a more articulate way but was still disoriented. We repeated a blood gas that showed a rise in his pCO2 from 57-67 and also a rise in his bicarbonate which is not well explained. At this point I do feel that the patient necessitates admission to the hospital. I have had an interactive discussion with Dr. Salazar of the internal medicine service who has agreed to evaluate the patient in the emergency department. After our discussion and his evaluation he has agreed to admit the patient to his service and accept primary responsibility of the patient move forward. Critical Care Critical Care Time Critical Care Time: Yes Attestation: On 04/08/25, the high probability of a clinically significant, sudden or life threatening deterioration of the following system(s) required my full and direct attention, intervention and personal management. The time I documented below is in addition to time spent performing reported procedures but includes the following listed in this critical care notation. Total Time Total Critical Care Time: 60
[2025-04-08 11:24] LABS: Lactate Venous 1.4 mmol/L (0.4-2.0); VBG HCO3 29.9 mmol/L (23-30); VBG PCO2 67.0 mmol/L (35-51); VBG PH 7.27 mmol/L (7.31-7.41); VBG PO2 34.2 mmol/L (28-40)
[2025-04-08 11:28] LABS: Acetaminophen < 10 ug/ml (10-30); Alanine Aminotransferase 16 U/L (12-78); Albumin Level 3.8 g/dl (3.5-5.0); Albumin/Globulin Ratio 1.2 (1.1-1.8); Alkaline Phosphatase 74 U/L (38-126); Anion Gap 13.1 mEq/L (5-15); Aspartate Amino Transferase 31 U/L (17-59); Bilirubin,Total 0.5 mg/dl (0.2-1.3); Blood Urea Nitrogen 10 mg/dl (9-20); Calcium 9.1 mg/dl (8.4-10.2); Carbon Dioxide 28 mmol/L (22.0-30.0); Chloride 92 mmol/L (98-107); Creatine Kinase 186 U/L (55-170); Creatinine Clearance Estimated 81 mL/min (50-200); Creatinine,Serum 1.20 mg/dl (0.66-1.25); Estimated Glomerular Filt Rate 61 ml/min (>60); GFR (African American) 74 ML/MIN (>60); Globulin 3.1 g/dL (1.3-3.2); Glucose 106 mg/dl (74-100); Potassium 5.1 mmoL/L (3.5-5.1); Salicylate < 1.0 mg/dL (2.0-20.0); Sodium 128 mmol/L (136-145); Total Protein,Serum 6.9 g/dl (6.3-8.2)
[2025-04-08 11:42] LABS: Troponin I < 0.01 ng/ml (0.00-0.034)
--- NOTE | 2025-04-08 11:43 | EXP.HP ---
History of Present Illness *Admission Date: 04/08/25 *Reason for visit:: Altered mentation *History of present illness: Henri Munguia is a 65-year-old male with a medical history significant for paranoid schizophrenia who resides at [facility] presents with altered mentation and somnolence. On my evaluation of patient, he was on BiPAP and encephalopathic due to hypercapnia. History was obtained via chart review and discussing with ED provider and nurses. Patient reportedly was up all night, took his normal morning medications this morning in addition to smoking 3 bowls of marijuana this morning and went to lay down. Patient was found to be somnolent, difficult to arouse and EMS was called. EMS gave Narcan and route without change in mentation. On arrival, VBG revealed pH 7.25 pCO2 57. He was initiated on BiPAP therapy with improvement in mentation, upon which he removed the BiPAP. Other workup includes WBC 3.3, sodium 128, CK1 86, UDS positive for THC, normal respiratory panel. He was given Solu-Medrol 125 mg, DuoNebs without significant improvement and repeat VBG. ED provider discussed case with me and I decided to admit patient for acute hypercapnic respiratory failure. [facility] Disclaimer: The information contained in this section may have been updated after the patient was seen, as this information can be updated by other users. Medical History (Updated 04/08/25 @ 16:46 by Ambreen Candelario MD) Pneumonia Chronic pain Epilepsy Symptoms of allergic rhinioconjunctivitis Schizo affective schizophrenia Acid reflux Parkinson disease MDD (major depressive disorder) Anxiety Insomnia High cholesterol Chronic constipation Chronic hyponatremia Surgical History (Updated 12/25/22 @ 19:34 by Marco Gonzales RN) No history of previous surgery Family History (Updated 12/25/22 @ 19:35 by Marco Gonzales RN) Other No significant family history Social History (Updated 01/16/23 @ 00:42 by Anya Levin RN) Smoking Status: Unknown if ever smoked alcohol intake: former current occupational status: disabled Travel in the last 8 weeks?: None caregiver/support person: Yes housing: assisted living facility lives independently: Yes service: No halfway: No Have you lived/traveled outside [place] in past 30 days?: No Contact w/someone who lives/traveled outside US past 30 days?: No Exposure to someone with infectious disease in past 14 days?: No Do you have a fever (greater than 100.4 F or 38 C)?: No Have you tested positive for COVID-19?: No Exposed to someone with COVID-19 in past 14 days?: No Do you have a sore throat?: No Do you have a cough?: No Do you have any weakness?: No Do you have any diarrhea?: No Are you experiencing any unusual bleeding?: No Do you have any muscle aches/pain?: No Do you have any abdominal pain?: No Are you experiencing loss of taste or smell?: No Other Medical History Have you received the Flu Vaccine for this season: No Have you received the Pneumonia Vaccine: No Meds Home Medications and Allergies Home Medications ?Medication ?Instructions ?Recorded ?Confirmed ?Type atorvastatin 10 mg tablet 10 mg PO HS 12/25/22 04/08/25 History benztropine 0.5 mg tablet 0.5 mg PO BID Parkinson's disease 12/25/22 04/08/25 History divalproex 500 mg tablet,extended 500 mg PO TID Seizures 12/25/22 04/08/25 History release 24 hr docusate sodium 50 mg capsule 100 mg PO BID 12/25/22 04/08/25 History fluticasone propionate 50 2 spray intranasal DAILY Allergy 12/25/22 04/08/25 History mcg/actuation nasal symptoms spray,suspension melatonin 3 mg tablet 6 mg PO HS 12/25/22 04/08/25 History omeprazole 40 mg capsule,delayed 40 mg PO DAILY Acid reflux 12/25/22 04/08/25 History release prazosin 2 mg capsule 2 mg PO HS restless leg syndrome 12/25/22 04/08/25 History albuterol 90 mcg/actuation aerosol 180 mcg inhalation Q6HP PRN 01/16/23 04/08/25 History inhaler Shortness Of Breath magnesium hydroxide 400 mg/5 mL 30 ml PO BID PRN Constipation 01/16/23 04/08/25 History oral suspension (Milk of Magnesia) ondansetron 4 mg disintegrating 4 mg PO TID PRN Nausea 01/16/23 04/08/25 History tablet cetirizine 10 mg tablet 10 mg PO HS 04/08/25 04/08/25 History cholecalciferol (vitamin D3) 1,250 1,250 mcg PO WEEKLY Monday04/08/25 04/08/25 History mcg (50,000 unit) capsule fluphenazine HCl 10 mg tablet 10 mg PO BID 04/08/25 04/08/25 History olanzapine 20 mg tablet 20 mg PO HS 04/08/25 04/08/25 History sodium chloride 1,000 mg soluble 1,000 mg PO TID 04/08/25 04/08/25 History tablet tamsulosin 0.4 mg capsule (Flomax) 0.4 mg PO DAILY 04/08/25 04/08/25 History New Prescriptions to Start Prescriptions: Allergies Allergy/AdvReac Type Severity Reaction Status Date / Time No Known Allergies Allergy Verified 12/25/22 18:07 Exam Data for Last 24 hours Vital signs and Labs for Last 24 Hours: Temp Pulse Resp BP Pulse Ox O2 Del Method FiO2 97.2 F L 83 14 102/80 L 96 Room Air 21 04/08/25 09:10 04/08/25 09:10 04/08/25 09:10 04/08/25 09:10 04/08/25 09:10 04/08/25 09:10 04/08/25 10:59 Laboratory Results - last 24 hr 04/08/25 09:10: WBC 3.3 L, RBC 4.31 L, Hgb 13.5 L, Hct 39.0 L, MCV 90.5, MCH 31.3 H, MCHC 34.6, RDW 12.0, Plt Count 180, MPV 8.9, Neut % (Auto) 34.3 L, Lymph % (Auto) 51.4 H, [place] % (Auto) 12.2 H, Eos % (Auto) 1.5, Baso % (Auto) 0.3, Neut # (Auto) 1.1 L, Lymph # (Auto) 1.7, Bl[place] # (Auto) 0.4, Eos # (Auto) 0.1, Baso # (Auto) 0.0, Sodium 128 L, Potassium 5.1, Chloride 92 L, Carbon Dioxide 28, Anion Gap 13.1, BUN 10, Creatinine 1.20, Estimated Creat Clear 81, Estimated GFR 61, Est GFR ( Amer) 74, Glucose 106 H, Calcium 9.1, Total Bilirubin 0.5, AST 31, ALT 16, Alkaline Phosphatase 74, Total Creatine Kinase 186 H, Troponin I < 0.01, Total Protein 6.9, Albumin 3.8, Globulin 3.1, Albumin/Globulin Ratio 1.2, Free T4 1.08, Salicylates < 1.0 L, Acetaminophen < 10 L, Plasma/Serum Alcohol < 10, HCV Ab LAI w/Rflx PCR Qn Negative, HIV Ag/Ab Combo Qual Negative 04/08/25 09:18: VBG pH 7.25 L, VBG pCO2 57.0 H, VBG pO2 44.1 H, VBG HCO3 24.5, VBG Total CO2 26.3, VBG O2 Saturation 73.6 H, VBG Base Excess -2.6 L, VBG Lactic Acid 1.2 04/08/25 09:45: Urine Color Yellow, Urine Appearance Clear, Urine pH 7.0, Ur Specific [place] 1.015, Urine Protein Negative, Urine Glucose (UA) Negative, Urine Ketones Negative, Urine Blood Negative, Urine Nitrate Negative, Urine Bilirubin Negative, Urine Urobilinogen 1.0, Ur Leukocyte Esterase Negative, Urine RBC None, Urine WBC Occasional, Ur Squamous Epith Cells None, Urine Bacteria Trace, Urine Opiates Screen Negative, Urine Methadone Screen Negative, Ur Barbituates Screen Negative, Ur Phencyclidine Scrn Negative, Ur Amphetamines Screen Negative, U Benzodiazepines Scrn Negative, Urine Cocaine Screen Negative, U Marijuana (THC) Screen Positive H 04/08/25 11:15: VBG pH 7.27 L, VBG pCO2 67.0 H, VBG pO2 34.2, VBG HCO3 29.9, VBG Total CO2 32.0 H, VBG O2 Saturation 60.3, VBG Base Excess 3.0 H, VBG Lactic Acid 1.4 I & O for Last 24 hours: Intake & Output 04/05/25 04/06/25 04/07/25 04/08/25 23:59 23:59 23:59 23:59 Weight 90.718 kg Constitutional Constitutional: no acute distress Comments: Somnolent, encephalopathic. *Routine HEENT Exam Head: Present normocephalic Eye: Present EOMI and PERRL ENT: Present mucous membranes moist *Routine Neck Exam Neck: Present supple; Absent lymphadenopathy *Routine Respiratory Exam Respiratory: Present CTA bilaterally *Routine Cardiovascular Exam Cardiovascular: Present RRR *Routine Abdominal Exam Abdominal: Present soft and normoactive bowel sounds; Absent tenderness *Routine Rectal Exam Rectal:: deferred *Routine Genitalia Exam Genitalia:: deferred *Routine Extremities Exam Extremities: Absent cyanosis, clubbing or edema *Routine Skin Exam Skin: Present warm; Absent rash *Routine Neurological Exam Neurological: Present alert Assessment and Plan *Assessment and plan (1) Acute hypercapnic respiratory failure: Status: Acute Category: Medical Code(s): J96.02 - Acute respiratory failure with hypercapnia (2) Schizo affective schizophrenia: Status: Acute Category: Medical Code(s): F25.9 - Schizoaffective disorder, unspecified Plan Henri Munguia is a 65-year-old male with a medical history significant for paranoid schizophrenia who resides at [facility] presents with altered mentation and somnolence. On my evaluation of patient, he was on BiPAP and encephalopathic due to hypercapnia. History was obtained via chart review and discussing with ED provider and nurses. Patient reportedly was up all night, took his normal morning medications this morning in addition to smoking 3 bowls of marijuana this morning and went to lay down. Patient was found to be somnolent, difficult to arouse and EMS was called. EMS gave Narcan and route without change in mentation. On arrival, VBG revealed pH 7.25 pCO2 57. He was initiated on BiPAP therapy with improvement in mentation, upon which he removed the BiPAP. Other workup includes WBC 3.3, sodium 128, CK1 86, UDS positive for THC, normal respiratory panel. He was given Solu-Medrol 125 mg, DuoNebs without significant improvement and repeat VBG. ED provider discussed case with me and I decided to admit patient for acute hypercapnic respiratory failure. #Acute hypercapnic respiratory failure #Cannabinoid use disorder #Polypharmacy ? Patient became somnolent, encephalopathic after taking his morning medications and smoking multiple marijuana. ? Initial VBG showed acute hypercapnia, placed on BiPAP with improvement and normalization of pH. pCO2 still elevated in the mid 50s. The patient's mentation significantly improved, alert and oriented. ? Suspect cannabinoid use/hypersomnolence contributing to hypercapnic respiratory failure. However, medication review suggests multiple psychotropic medications also likely contributing. Pending pharmacy reconciliation. ? Pulmonology consulted, recommended breathing treatments and BiPAP. ? Started DuoNebs every 4 hours, Pulmicort twice daily. ? Pulmonology started levofloxacin 750 mg daily. ? Follow-up repeat BMP at 10 PM, if continues to be hypercapnic restart BiPAP for tonight. ? Follow-up morning VBG. #Paranoid schizophrenia ? Medications pending pharmacy reconciliation. Full code DVT prophylaxis: Lovenox 40 mg
[2025-04-08 11:51] LABS: Coronavirus 19, PCR Not Detected (NotDetected); Influenza A, PCR Not Detected (NotDetected); Influenza B, PCR Not Detected (NotDetected)
--- NOTE | 2025-04-08 11:51 | PC.NURSE ---
supervisor pairing and inspecting states they have to move someone out of room that patient will be going to, then clean room, so they will call when room is ready and we can give report. Nurse notified
[2025-04-08 11:55] LABS: Valproic Acid, (Depakene) 75.5 ug/ml (50-100)
--- NOTE | 2025-04-08 12:07 | PC.NURSE ---
report called to ICU
[2025-04-08 12:11] LABS: Ammonia 12 umol/L (9-30)
--- NOTE | 2025-04-08 12:11 | PC.NURSE ---
recieved report from SHAYLEE Simeon. waiting on room to be cleaned before transport to ICU
--- NOTE | 2025-04-08 12:12 | EXP.PULM.CON ---
History of Present Illness History of present illness: Mr. Álvarez is a 65-year-old male resident of [facility] presented to the ER with worsening respiratory distress pulmonary was called for further evaluation and management. Much of the history is obtained from chart review. Patient lethargic confused not responding appropriately to verbal commands during my examination. [facility] Disclaimer: The information contained in this section may have been updated after the patient was seen, as this information can be updated by other users. Medical History (Updated 04/08/25 @ 16:46 by Ambreen Candelario MD) Pneumonia Chronic pain Epilepsy Symptoms of allergic rhinioconjunctivitis Schizo affective schizophrenia Acid reflux Parkinson disease MDD (major depressive disorder) Anxiety Insomnia High cholesterol Chronic constipation Chronic hyponatremia Surgical History (Updated 12/25/22 @ 19:34 by Marco Gonzales RN) No history of previous surgery Family History (Updated 12/25/22 @ 19:35 by Marco Gonzales RN) Other No significant family history Social History (Updated 01/16/23 @ 00:42 by Anya Levin RN) Smoking Status: Unknown if ever smoked alcohol intake: former current occupational status: disabled Travel in the last 8 weeks?: None caregiver/support person: Yes housing: assisted living facility lives independently: Yes service: No senior care: No Have you lived/traveled outside US in past 30 days?: No Contact w/someone who lives/traveled outside US past 30 days?: No Exposure to someone with infectious disease in past 14 days?: No Do you have a fever (greater than 100.4 F or 38 C)?: No Have you tested positive for COVID-19?: No Exposed to someone with COVID-19 in past 14 days?: No Do you have a sore throat?: No Do you have a cough?: No Do you have any weakness?: No Do you have any diarrhea?: No Are you experiencing any unusual bleeding?: No Do you have any muscle aches/pain?: No Do you have any abdominal pain?: No Are you experiencing loss of taste or smell?: No Review of Systems Review of Systems Review of systems:: unable to obtain Review of systems (narrative): Patient lethargic, not responding appropriately to verbal commands Pulmonology Exam Inpatient Vital signs and Labs for Last 24 Hours: Temp Pulse Resp BP Pulse Ox O2 Del Method FiO2 97.2 F L 72 13 152/99 H 95 Room Air 21 04/08/25 09:10 04/08/25 11:00 04/08/25 11:31 04/08/25 11:31 04/08/25 11:00 04/08/25 09:10 04/08/25 10:59 Laboratory Results - last 24 hr 04/08/25 09:10: WBC 3.3 L, RBC 4.31 L, Hgb 13.5 L, Hct 39.0 L, MCV 90.5, MCH 31.3 H, MCHC 34.6, RDW 12.0, Plt Count 180, MPV 8.9, Neut % (Auto) 34.3 L, Lymph % (Auto) 51.4 H, [place] % (Auto) 12.2 H, Eos % (Auto) 1.5, Baso % (Auto) 0.3, Neut # (Auto) 1.1 L, Lymph # (Auto) 1.7, [place] # (Auto) 0.4, Eos # (Auto) 0.1, Baso # (Auto) 0.0, Sodium 128 L, Potassium 5.1, Chloride 92 L, Carbon Dioxide 28, Anion Gap 13.1, BUN 10, Creatinine 1.20, Estimated Creat Clear 81, Estimated GFR 61, Est GFR ( Amer) 74, Glucose 106 H, Calcium 9.1, Total Bilirubin 0.5, AST 31, ALT 16, Alkaline Phosphatase 74, Total Creatine Kinase 186 H, Troponin I < 0.01, Total Protein 6.9, Albumin 3.8, Globulin 3.1, Albumin/Globulin Ratio 1.2, Free T4 1.08, Salicylates < 1.0 L, Acetaminophen < 10 L, Total Valproic Acid 75.5, Plasma/Serum Alcohol < 10, HCV Ab LAI w/Rflx PCR Qn Negative, HIV Ag/Ab Combo Qual Negative 04/08/25 09:18: VBG pH 7.25 L, VBG pCO2 57.0 H, VBG pO2 44.1 H, VBG HCO3 24.5, VBG Total CO2 26.3, VBG O2 Saturation 73.6 H, VBG Base Excess -2.6 L, VBG Lactic Acid 1.2 04/08/25 09:45: Urine Color Yellow, Urine Appearance Clear, Urine pH 7.0, Ur Specific [place] 1.015, Urine Protein Negative, Urine Glucose (UA) Negative, Urine Ketones Negative, Urine Blood Negative, Urine Nitrate Negative, Urine Bilirubin Negative, Urine Urobilinogen 1.0, Ur Leukocyte Esterase Negative, Urine RBC None, Urine WBC Occasional, Ur Squamous Epith Cells None, Urine Bacteria Trace, Urine Opiates Screen Negative, Urine Methadone Screen Negative, Ur Barbituates Screen Negative, Ur Phencyclidine Scrn Negative, Ur Amphetamines Screen Negative, U Benzodiazepines Scrn Negative, Urine Cocaine Screen Negative, U Marijuana (THC) Screen Positive H 04/08/25 11:15: VBG pH 7.27 L, VBG pCO2 67.0 H, VBG pO2 34.2, VBG HCO3 29.9, VBG Total CO2 32.0 H, VBG O2 Saturation 60.3, VBG Base Excess 3.0 H, VBG Lactic Acid 1.4 I & O for Labs for Last 24 Hours: Intake & Output 04/05/25 04/06/25 04/07/25 04/08/25 23:59 23:59 23:59 23:59 Weight 200 lb Constitutional: Present severe distress Head: Present normocephalic and atraumatic ENT: Present normal exam, normal oropharynx and mucous membranes moist Neck: Present normal inspection and full ROM Respiratory: Present prolonged expiratory phase, respiratory distress and diminished air movement; Absent able to speak in complete sentences Cardiac: Present S1/S2, Tachycardia and radial pulses present GI: Present soft and distention; Absent tenderness or guarding Skin: Present intact; Absent cyanosis or jaundice Neuro: Absent alert, awake or oriented x 3 Extremities: Present normal inspection; Absent clubbing or cyanosis Psychiatric: Present unable to assess Meds Home Medications and Allergies Home Medications ?Medication ?Instructions ?Recorded ?Confirmed ?Type atorvastatin 10 mg tablet 10 mg PO HS 12/25/22 04/08/25 History benztropine 0.5 mg tablet 0.5 mg PO BID Parkinson's disease 12/25/22 04/08/25 History divalproex 500 mg tablet,extended 500 mg PO TID Seizures 12/25/22 04/08/25 History release 24 hr docusate sodium 50 mg capsule 100 mg PO BID 12/25/22 04/08/25 History fluticasone propionate 50 2 spray intranasal DAILY Allergy 12/25/22 04/08/25 History mcg/actuation nasal symptoms spray,suspension melatonin 3 mg tablet 6 mg PO HS 12/25/22 04/08/25 History omeprazole 40 mg capsule,delayed 40 mg PO DAILY Acid reflux 12/25/22 04/08/25 History release prazosin 2 mg capsule 2 mg PO HS restless leg syndrome 12/25/22 04/08/25 History albuterol 90 mcg/actuation aerosol 180 mcg inhalation Q6HP PRN 01/16/23 04/08/25 History inhaler Shortness Of Breath magnesium hydroxide 400 mg/5 mL 30 ml PO BID PRN Constipation 01/16/23 04/08/25 History oral suspension (Milk of Magnesia) ondansetron 4 mg disintegrating 4 mg PO TID PRN Nausea 01/16/23 04/08/25 History tablet cetirizine 10 mg tablet 10 mg PO HS 04/08/25 04/08/25 History cholecalciferol (vitamin D3) 1,250 1,250 mcg PO WEEKLY Monday04/08/25 04/08/25 History mcg (50,000 unit) capsule fluphenazine HCl 10 mg tablet 10 mg PO BID 04/08/25 04/08/25 History olanzapine 20 mg tablet 20 mg PO HS 04/08/25 04/08/25 History sodium chloride 1,000 mg soluble 1,000 mg PO TID 04/08/25 04/08/25 History tablet tamsulosin 0.4 mg capsule (Flomax) 0.4 mg PO DAILY 04/08/25 04/08/25 History New Prescriptions to Start Prescriptions: Allergies Allergy/AdvReac Type Severity Reaction Status Date / Time No Known Allergies Allergy Verified 12/25/22 18:07 Results Laboratory Findings 04/08/25 09:10 04/08/25 09:10 Abnormal lab findings: Abnormal Labs 04/08/25 04/08/25 04/08/25 09:10 09:18 09:45 WBC 3.3 L RBC 4.31 L Hgb 13.5 L Hct 39.0 L MCH 31.3 H Neut % (Auto) 34.3 L Lymph % (Auto) 51.4 H Evangeline % (Auto) 12.2 H Neut # (Auto) 1.1 L VBG pH 7.25 L VBG pCO2 57.0 H VBG pO2 44.1 H VBG Total CO2 VBG O2 Saturation 73.6 H VBG Base Excess -2.6 L Sodium 128 L Chloride 92 L Glucose 106 H Total Creatine Kinase 186 H Salicylates < 1.0 L Acetaminophen < 10 L U Marijuana (THC) Screen Positive H 04/08/25 11:15 WBC RBC Hgb Hct MCH Neut % (Auto) Lymph % (Auto) [place] % (Auto) Neut # (Auto) VBG pH 7.27 L VBG pCO2 67.0 H VBG pO2 VBG Total CO2 32.0 H VBG O2 Saturation VBG Base Excess 3.0 H Sodium Chloride Glucose Total Creatine Kinase Salicylates Acetaminophen U Marijuana (THC) Screen Assessment and Plan *Assessment and plan (1) Acute hypercapnic respiratory failure: Status: Acute Category: Medical Code(s): J96.02 - Acute respiratory failure with hypercapnia (2) Pneumonia: Status: Acute Category: Medical Code(s): J18.9 - Pneumonia, unspecified organism Plan Mr. Álvarez is a 65-year-old male resident of [facility] presented to the ER with worsening respiratory distress pulmonary was called for further evaluation and management. Much of the history is obtained from chart review. Patient lethargic confused not responding appropriately to verbal commands during my examination. Afebrile. Leukopenia. Hemodynamically stable. Hypercarbia upon admission the pH is 7.27 and pCO2 57.0. Flu Rhino RSV COVID respiratory viral PCR panel negative. Chest x-ray upon admission left lung marsh clear. Concern for right upper and middle lobe airspace disease. No dense consolidative changes noted. No hyperinflation noted on chest x-ray PA Patient was initial noninvasive ventilator therapy in the ER, refused and was eventually switched to high flow nasal cannula. Upon admission to ICU patient has been compliant with his noninvasive ventilatory therapy. Plan: DuoNebs every 4 hours along with Pulmicort every 12 scheduled Continue noninvasive ventilator therapy, follow with repeat VBG Methylprednisone 40 mg IV daily Levofloxacin 750 mg IV daily.
--- NOTE | 2025-04-08 12:24 | PC.NURSE ---
Addendum entered by Pauly Joy RN 04/08/25 12:26: Dr. Candelario at bedside Original Note: Dr. Salazar at bedside to see patient.
[2025-04-08 12:46] LABS: Thyroid Stimulating Hormone 0.87 uIU/mL (0.465-4.68)
--- NOTE | 2025-04-08 13:00 | HMH.PHAINT1 ---
Pharmacy Intervention Comments: Home medication list verified using list from shayla rodrigez
--- NOTE | 2025-04-08 13:04 | PC.NURSE ---
Pt arrived on unit via stretcher at 1304, accompanied by Keith damon RN, Geovanni Page RT, Hortensia Seymour RT, Keith Omer RT.
[2025-04-08 13:07] LABS: Troponin I < 0.01 ng/ml (0.00-0.034)
--- NOTE | 2025-04-08 13:17 | PC.NURSE ---
pt arrived to the floor from the ED. pt was alert and oriented to name, birthday, place and year but not situation. He stated he is tired and wants to sleep and doesnt know why he is here. pt requesting a meal at this time but informed that he is currently NPO until his breathing improves. because of the pts improvement in mentation from the ER a stat VBG was ordered and collected to reassess blood gas and need for bipap.
[2025-04-08 13:19] LABS: Lactate Venous 1.6 mmol/L (0.4-2.0); VBG HCO3 30.1 mmol/L (23-30); VBG PCO2 58.6 mmol/L (35-51); VBG PH 7.33 mmol/L (7.31-7.41); VBG PO2 26.4 mmol/L (28-40)
--- NOTE | 2025-04-08 13:28 | PC.NURSE ---
blood gas reviewed by Dr. Candelario. pt is to still be on bipap at this time. Respiratory at bedside
--- NOTE | 2025-04-08 13:33 | PC.NURSE ---
pt remains very groggy and soft spoken. pt able to answer questions minimally but still cant recall why he is here or any medical history. attempted to call shayla rodrigez for more information for admission with no answer. will call again. pt currently back on bipap and tolerating well
[2025-04-08] MEDS: IPRATROPIUM/ALBUTEROL 3 ML NEB IH ×3 (14:04→22:10)
[2025-04-08] MEDS: BUDESONIDE 0.5MG/2ML NEB 0.5 MG IH ×2 (14:05→18:29)
[2025-04-08 14:40] LABS: Adenovirus,PCR Not Detected (NotDetected); Chlamydophila Pneumoniae, PCR Not Detected (NotDetected); Coronavirus 19, PCR Not Detected (NotDetected); Coronovirus HKU1,PCR Not Detected (NotDetected); Influenza A, PCR Not Detected (NotDetected); Influenza AH1, 2009 Not Detected (NotDetected); Influenza AH1, PCR Not Detected (NotDetected); Influenza AH3,PCR Not Detected (NotDetected); Influenza B, PCR Not Detected (NotDetected); Mycoplasma Pneumoniae, PCR Not Detected (NotDetected); Parainfluenza 1, PCR Not Detected (NotDetected); Parainfluenza 2, PCR Not Detected (NotDetected); Parainfluenza 3, PCR Not Detected (NotDetected); Parainfluenza 4, PCR Not Detected (NotDetected)
[2025-04-08 17:05] LABS: VBG HCO3 29.4 mmol/L (23-30); VBG PCO2 57.3 mmol/L (35-51); VBG PH 7.33 mmol/L (7.31-7.41); VBG PO2 29.9 mmol/L (28-40)
[2025-04-08 17:07] LABS: Lactate Venous 2.1 mmol/L (0.4-2.0)
[2025-04-08] MEDS: LEVOFLOXACIN/D5W 750 MG/150 ML 750 MG/150 ML PIGGYBACK 100 MG IV (17:48)
[2025-04-08] MEDS: METHYLPREDNISOLONE SOD SUCC 40MG VIAL 40 MG IV (17:48)
[2025-04-08 20:22] LABS: Procalcitonin 0.035 ng/mL (0.0-2.0)
[2025-04-08 21:06] LABS: Reflex Lactic Add Lactic Reflex
[2025-04-08 21:12] LABS: VBG HCO3 28.2 mmol/L (23-30); VBG PCO2 58.0 mmol/L (35-51); VBG PH 7.30 mmol/L (7.31-7.41); VBG PO2 39.4 mmol/L (28-40)
[2025-04-08 21:17] LABS: Lactate Venous 4.1 mmol/L (0.4-2.0)
--- NOTE | 2025-04-08 21:49 | PC.NURSE ---
Spoke with Will RT, who spoke with Dr Candelario regarding pts VBG result. States we are placing pt on BIPAP with different settings than before.
--- NOTE | 2025-04-08 22:54 | PC.NURSE ---
notified Jayjay DURANT of pt being anxious and not wanting to wear BIPAP. New orders being placed at this time
[2025-04-08 23:02] LABS: NT Pro Brain Natriuretic Pep. 107 pg/mL (0-125)
[2025-04-08] MEDS: OLANZapine 5 MG ODT TABLET 10 MG SL (23:03)
[2025-04-09] VITALS (17 sets, daily range): BP systolic 98–142; BP diastolic 44–75; PULSE 77–107; RESP 14–24; TEMP 36.1–37.3; O2SAT 88–98; BMI 25.0
--- NOTE | 2025-04-09 00:13 | PC.NURSE ---
pt stilll refusing BIPAP after zyprexa. Jayjay DURANT aware.
[2025-04-09] MEDS: IPRATROPIUM/ALBUTEROL 3 ML NEB IH ×2 (02:42→05:47)
[2025-04-09] MEDS: BUDESONIDE 0.5MG/2ML NEB 0.5 MG IH (05:47)
[2025-04-09 05:56] LABS: Alanine Aminotransferase 16 U/L (12-78); Albumin Level 3.4 g/dl (3.5-5.0); Albumin/Globulin Ratio 1.2 (1.1-1.8); Alkaline Phosphatase 61 U/L (38-126); Anion Gap 10.8 mEq/L (5-15); Aspartate Amino Transferase 26 U/L (17-59); Bilirubin,Total 0.4 mg/dl (0.2-1.3); Blood Urea Nitrogen 12 mg/dl (9-20); Calcium 9.1 mg/dl (8.4-10.2); Carbon Dioxide 29 mmol/L (22.0-30.0); Chloride 93 mmol/L (98-107); Creatinine Clearance Estimated 83 mL/min (50-200); Creatinine,Serum 1.10 mg/dl (0.66-1.25); Estimated Glomerular Filt Rate 68 ml/min (>60); GFR (African American) 82 ML/MIN (>60); Globulin 2.9 g/dL (1.3-3.2); Glucose 63 mg/dl (74-100); Magnesium 1.9 mg/dl (1.6-2.3); Potassium 4.8 mmoL/L (3.5-5.1); Sodium 128 mmol/L (136-145); Total Protein,Serum 6.3 g/dl (6.3-8.2)
[2025-04-09 06:07] LABS: Hematocrit 35.7 % (42.0-52.0); Immature Granulocytes % 0.4 %; Mean Corpuscular HGB Conc 33.3 g/dL (31.8-35.4); Mean Corpuscular Hemoglobin 30.4 pg (27.0-31.2); Mean Corpuscular Volume 91.1 fl (80-94); Nucleated Red Blood Cells % 0 %; Platelet Count 172 K/mm3 (142-424); Red Blood Count 3.92 M/mm3 (4.60-6.20); Red Cell Distribution Width-SD 41.4 fL; White Blood Count 8.2 K/mm3 (4.8-10.8)
[2025-04-09 06:20] LABS: Hemoglobin 12.1 g/dL (14.1-18.0)
--- NOTE | 2025-04-09 07:46 | SW/DCPLANNER ---
Addendum entered by Lilia Russell 04/10/25 14:47: I have updated Alta nino/ Hany Allan that patient will return today. Original Note: Patient currently resides at [facility]. Per Alta nino/ Hany Allan patient normally does everything for himself, somewhat confused, takes his daily medication and does have a State Guardian. Patient's State Guardian is Minnie Freeman but due to being on vacation she requested that Shara Verdin be contacted for any needs at [phone].
[2025-04-09 07:57] LABS: VBG HCO3 26.2 mmol/L (23-30); VBG PCO2 43.7 mmol/L (35-51); VBG PH 7.40 mmol/L (7.31-7.41); VBG PO2 138.4 mmol/L (28-40)
[2025-04-09 07:58] LABS: Lactate Venous 3.6 mmol/L (0.4-2.0)
[2025-04-09] MEDS: METHYLPREDNISOLONE SOD SUCC 40MG VIAL 40 MG IV (08:37)
--- NOTE | 2025-04-09 09:01 | PC.NURSE ---
RT placed patient on RA, patient did well until he fell asleep, sats dropped to 84-85% with good pleth, put him back on 2L for time being while he is sleeping.
--- NOTE | 2025-04-09 09:34 | EXP.PULM.PN ---
Subjective *Date: 04/09/25 *Time: 12:34 Interval history: No acute respiratory vents overnight. Continued improvement in noted respiratory symptoms. Pulmonology Exam Inpatient Vital signs and Labs for Last 24 Hours: Temp Pulse Resp BP Pulse Ox O2 Del Method O2 Flow Rate 99.1 F 101 H 18 111/61 96 Nasal Cannula 2 04/09/25 04:00 04/09/25 08:00 04/09/25 07:30 04/09/25 07:30 04/09/25 08:00 04/09/25 08:58 04/09/25 08:58 FiO2 21 04/08/25 22:00 Laboratory Results - last 24 hr 04/08/25 09:10: WBC 3.3 L, RBC 4.31 L, Hgb 13.5 L, Hct 39.0 L, MCV 90.5, MCH 31.3 H, MCHC 34.6, RDW 12.0, Plt Count 180, MPV 8.9, Neut % (Auto) 34.3 L, Lymph % (Auto) 51.4 H, [place] % (Auto) 12.2 H, Eos % (Auto) 1.5, Baso % (Auto) 0.3, Neut # (Auto) 1.1 L, Lymph # (Auto) 1.7, [place] # (Auto) 0.4, Eos # (Auto) 0.1, Baso # (Auto) 0.0, Sodium 128 L, Potassium 5.1, Chloride 92 L, Carbon Dioxide 28, Anion Gap 13.1, BUN 10, Creatinine 1.20, Estimated Creat Clear 81, Estimated GFR 61, Est GFR ( Amer) 74, Glucose 106 H, Calcium 9.1, Total Bilirubin 0.5, AST 31, ALT 16, Alkaline Phosphatase 74, Total Creatine Kinase 186 H, Troponin I < 0.01, Total Protein 6.9, Albumin 3.8, Globulin 3.1, Albumin/Globulin Ratio 1.2, TSH 0.87, Free T4 1.08, Salicylates < 1.0 L, Acetaminophen < 10 L, Total Valproic Acid 75.5, Plasma/Serum Alcohol < 10, HCV Ab LAI w/Rflx PCR Qn Negative, HIV Ag/Ab Combo Qual Negative 04/08/25 09:45: Urine Color Yellow, Urine Appearance Clear, Urine pH 7.0, Ur Specific [place] 1.015, Urine Protein Negative, Urine Glucose (UA) Negative, Urine Ketones Negative, Urine Blood Negative, Urine Nitrate Negative, Urine Bilirubin Negative, Urine Urobilinogen 1.0, Ur Leukocyte Esterase Negative, Urine RBC None, Urine WBC Occasional, Ur Squamous Epith Cells None, Urine Bacteria Trace, Urine Opiates Screen Negative, Urine Methadone Screen Negative, Ur Barbituates Screen Negative, Ur Phencyclidine Scrn Negative, Ur Amphetamines Screen Negative, U Benzodiazepines Scrn Negative, Urine Cocaine Screen Negative, U Marijuana (THC) Screen Positive H 04/08/25 11:15: VBG pH 7.27 L, VBG pCO2 67.0 H, VBG pO2 34.2, VBG HCO3 29.9, VBG Total CO2 32.0 H, VBG O2 Saturation 60.3, VBG Base Excess 3.0 H, VBG Lactic Acid 1.4 04/08/25 11:45: Chlamy pneumoniae PCR Not detected, Adenovirus (PCR) Not detected, B. pertussis DNA (PCR) Not detected, Coronavirus OC43 (PCR) Not detected, Coronavirus HKU1 (PCR) Not detected, Coronavirus 229E (PCR) Not detected, SARS-CoV-2 (PCR) Not detected 04/08/25 11:45: SARS-CoV-2 (PCR) Not detected, Coronavirus NL63 (PCR) Not detected, Human Metapneumovir PCR Not detected, Influenza A (H1) PCR Not detected, Influ A (H1N1/09) PCR Not detected, Influenza A (H3) PCR Not detected, Influenza Type A (PCR) Not detected 04/08/25 11:45: Influenza Type A (PCR) Not detected, Influenza Type B (PCR) Not detected 04/08/25 11:45: Influenza Type B (PCR) Not detected, M. pneumoniae (PCR) Not detected, Parainfluenza 1 (PCR) Not detected, Parainfluenza 2 (PCR) Not detected, Parainfluenza 3 (PCR) Not detected, Parainfluenza 4 (PCR) Not detected, RSV (PCR) Not detected 04/08/25 11:45: RSV (PCR) Not detected, Rhinovirus (PCR) Not detected, Entero/Rhino (PCR) Not detected 04/08/25 11:46: Ammonia 12 04/08/25 12:30: Troponin I < 0.01 04/08/25 13:11: VBG pH 7.33, VBG pCO2 58.6 H, VBG pO2 26.4 L, VBG HCO3 30.1 H, VBG Total CO2 31.9 H, VBG O2 Saturation 49.5 L, VBG Base Excess 4.1 H, VBG Lactic Acid 1.6 04/08/25 16:42: VBG pH 7.33, VBG pCO2 57.3 H, VBG pO2 29.9, VBG HCO3 29.4, VBG Total CO2 31.2 H, VBG O2 Saturation 56.8, VBG Base Excess 3.4 H, VBG Lactic Acid 2.1 H 04/08/25 17:50: Procalcitonin 0.035 04/08/25 21:00: VBG pH 7.30 L, VBG pCO2 58.0 H, VBG pO2 39.4, VBG HCO3 28.2, VBG Total CO2 29.9 H, VBG O2 Saturation 72.3 H, VBG Base Excess 1.8, VBG Lactic Acid 4.1 H 04/08/25 22:38: NT-Pro-B Natriuret Pep 107 04/09/25 05:27: WBC 8.2 D, RBC 3.92 L, Hgb 12.1 L D, Hct 35.7 L, MCV 91.1, MCH 30.4, MCHC 33.3, RDW 12.5, Plt Count 172, MPV 9.4, Neut % (Auto) 77.4, Lymph % (Auto) 13.2, [place] % (Auto) 8.9, Eos % (Auto) 0.0 L, Baso % (Auto) 0.1, Neut # (Auto) 6.3, Lymph # (Auto) 1.1, [place] # (Auto) 0.7, Eos # (Auto) 0.0, Baso # (Auto) 0.0, Sodium 128 L, Potassium 4.8, Chloride 93 L, Carbon Dioxide 29, Anion Gap 10.8, BUN 12, Creatinine 1.10, Estimated Creat Clear 83, Estimated GFR 68, Est GFR ( Amer) 82, Glucose 63 L D, Calcium 9.1, Magnesium 1.9, Total Bilirubin 0.4, AST 26, ALT 16, Alkaline Phosphatase 61, Total Protein 6.3, Albumin 3.4 L D, Globulin 2.9, Albumin/Globulin Ratio 1.2 04/09/25 07:45: VBG pH 7.40, VBG pCO2 43.7, VBG pO2 138.4 H, VBG HCO3 26.2, VBG Total CO2 27.6 H, VBG O2 Saturation 99.1 H, VBG Base Excess 1.4, VBG Lactic Acid 3.6 H Temp Pulse Resp BP Pulse Ox O2 Del Method FiO2 97.2 F L 72 13 152/99 H 95 Room Air 21 04/08/25 09:10 04/08/25 11:00 04/08/25 11:31 04/08/25 11:31 04/08/25 11:00 04/08/25 09:10 04/08/25 10:59 Laboratory Results - last 24 hr 04/08/25 09:10: WBC 3.3 L, RBC 4.31 L, Hgb 13.5 L, Hct 39.0 L, MCV 90.5, MCH 31.3 H, MCHC 34.6, RDW 12.0, Plt Count 180, MPV 8.9, Neut % (Auto) 34.3 L, Lymph % (Auto) 51.4 H, [place] % (Auto) 12.2 H, Eos % (Auto) 1.5, Baso % (Auto) 0.3, Neut # (Auto) 1.1 L, Lymph # (Auto) 1.7, [place] # (Auto) 0.4, Eos # (Auto) 0.1, Baso # (Auto) 0.0, Sodium 128 L, Potassium 5.1, Chloride 92 L, Carbon Dioxide 28, Anion Gap 13.1, BUN 10, Creatinine 1.20, Estimated Creat Clear 81, Estimated GFR 61, Est GFR ( Amer) 74, Glucose 106 H, Calcium 9.1, Total Bilirubin 0.5, AST 31, ALT 16, Alkaline Phosphatase 74, Total Creatine Kinase 186 H, Troponin I < 0.01, Total Protein 6.9, Albumin 3.8, Globulin 3.1, Albumin/Globulin Ratio 1.2, Free T4 1.08, Salicylates < 1.0 L, Acetaminophen < 10 L, Total Valproic Acid 75.5, Plasma/Serum Alcohol < 10, HCV Ab LAI w/Rflx PCR Qn Negative, HIV Ag/Ab Combo Qual Negative 04/08/25 09:18: VBG pH 7.25 L, VBG pCO2 57.0 H, VBG pO2 44.1 H, VBG HCO3 24.5, VBG Total CO2 26.3, VBG O2 Saturation 73.6 H, VBG Base Excess -2.6 L, VBG Lactic Acid 1.2 04/08/25 09:45: Urine Color Yellow, Urine Appearance Clear, Urine pH 7.0, Ur Specific [place] 1.015, Urine Protein Negative, Urine Glucose (UA) Negative, Urine Ketones Negative, Urine Blood Negative, Urine Nitrate Negative, Urine Bilirubin Negative, Urine Urobilinogen 1.0, Ur Leukocyte Esterase Negative, Urine RBC None, Urine WBC Occasional, Ur Squamous Epith Cells None, Urine Bacteria Trace, Urine Opiates Screen Negative, Urine Methadone Screen Negative, Ur Barbituates Screen Negative, Ur Phencyclidine Scrn Negative, Ur Amphetamines Screen Negative, U Benzodiazepines Scrn Negative, Urine Cocaine Screen Negative, U Marijuana (THC) Screen Positive H 04/08/25 11:15: VBG pH 7.27 L, VBG pCO2 67.0 H, VBG pO2 34.2, VBG HCO3 29.9, VBG Total CO2 32.0 H, VBG O2 Saturation 60.3, VBG Base Excess 3.0 H, VBG Lactic Acid 1.4 I & O for Labs for Last 24 Hours: Intake & Output 04/06/25 04/07/25 04/08/25 04/09/25 23:59 23:59 23:59 23:59 Intake Total 720 / 720 696 / 696 Output Total 1950 / 1950 700 / 700 Balance -1230 / -1230 -4 / -4 Weight 186 lb 4.65 oz 188 lb 14.978 oz Intake & Output 04/05/25 04/06/25 04/07/25 04/08/25 23:59 23:59 23:59 23:59 Weight 200 lb Constitutional: Present mild distress Head: Present normocephalic and atraumatic ENT: Present normal exam, normal oropharynx and mucous membranes moist Neck: Present normal inspection and full ROM Respiratory: Present prolonged expiratory phase, respiratory distress and able to speak in complete sentences Cardiac: Present S1/S2, Tachycardia and radial pulses present GI: Present soft and distention; Absent tenderness or guarding Skin: Present intact; Absent cyanosis or jaundice Neuro: Present alert, awake and oriented x 3 Extremities: Present normal inspection; Absent clubbing or cyanosis Psychiatric: Present normal affect and cooperative Assessment and Plan *Assessment and plan (1) Acute hypercapnic respiratory failure: Status: Acute Category: Medical Code(s): J96.02 - Acute respiratory failure with hypercapnia (2) Pneumonia: Status: Acute Category: Medical Code(s): J18.9 - Pneumonia, unspecified organism Plan Mr. Álvarez is a 65-year-old male resident of [facility] presented to the ER with worsening respiratory distress pulmonary was called for further evaluation and management. Much of the history is obtained from chart review. Patient lethargic confused not responding appropriately to verbal commands during my examination. Afebrile. Leukopenia. Hemodynamically stable. Hypercarbia upon admission the pH is 7.27 and pCO2 57.0. Flu Rhino RSV COVID respiratory viral PCR panel negative. Chest x-ray upon admission left lung marsh clear. Concern for right upper and middle lobe airspace disease. No dense consolidative changes noted. No hyperinflation noted on chest x-ray PA Patient was initial noninvasive ventilator therapy in the ER, refused and was eventually switched to high flow nasal cannula. Upon admission to ICU patient has been compliant with his noninvasive ventilatory therapy. Interval update: Admit current smoking, greater than [id number] smoking history. Not using any inhalers or oxygen supplementation at baseline. Admits personal history of allergies. No acute respiratory events overnight. Intermittently using noninvasive ventilatory therapy. Blood gas from this morning improved pH of 7.40 pCO2 43.7. No need for NIV at this point of time. Plan: Advair 500 inhaler along with albuterol/DuoNebs 4 times daily as needed Continue oxygen supplementation to maintain O2 saturation above 90% and above Wean steroids to prednisone 40 mg daily to complete a total of 5-day course Levofloxacin 750 mg IV daily x 5 days. Follow-up with sputum culture results. Thank you for involving pulmonary in this patient care. 6-minute walk testing prior to discharge. Will follow-up patient in pulmonary clinic 1 to 2 weeks postdischarge.
[2025-04-09] MEDS: SODIUM CHLORIDE 3% 15ML NEB 3 ML IH (11:49)
[2025-04-09 11:57] LABS: Reflex Lactic Add Lactic Reflex
--- NOTE | 2025-04-09 13:41 | HMH.PTEV ---
Physical Therapy Evaluation Rehab PT IP Evaluation Start: 04/09/25 11:09 Freq: ONCE Status: Active Protocol: Document 04/09/25 13:38 RAHUL (Rec: 04/09/25 13:41 RAHUL [id number]) Subjective/History History History Per H&P: Henri Munguia is a 65-year-old male with a medical history significant for paranoid schizophrenia who resides at [facility] presents with altered mentation and somnolence. On my evaluation of patient, he was on BiPAP and encephalopathic due to hypercapnia. History was obtained via chart review and discussing with ED provider and nurses. Patient reportedly was up all night, took his normal morning medications this morning in addition to smoking 3 bowls of marijuana this morning and went to lay down. Patient was found to be somnolent, difficult to arouse and EMS was called. EMS gave Narcan and route without change in mentation. On arrival, VBG revealed pH 7.25 pCO2 57. He was initiated on BiPAP therapy with improvement in mentation, upon which he removed the BiPAP. Other workup includes WBC 3.3, sodium 128, CK1 86, UDS positive for THC, normal respiratory panel. He was given Solu-Medrol 125 mg, DuoNebs without significant improvement and repeat VBG. ED provider discussed case with me and I decided to admit patient for acute hypercapnic respiratory failure. Subjective Subjective Pt reports he is normally IND with all mobility without AD use. Pt reports he lives at [facility] assistive living facility. [facility] How much help from another person do you currently need... Turning from your None back to your side while in a flat bed without using bedrails? Moving from lying on None back to sitting on the side of a flat bed without using bedrails? Moving to and from a None bed to a chair ( including a wheelchair)? Standing up from a None chair using your arms? (e.g., wheelchair, bedside chair) Walking in hospital None room? Climbing 3-5 steps None with a railing? Mobility Score 24 Mobility Level [facility] Mobility Walk 250 feet or more Mobility Calculator Rehab PT IP Eval Objective Appearance Patient Behavior Appropriate,Cooperative Patient Orientation Person,Birthday Difficulty following none instructions Speech Pattern Clear Ambulation Patient Able to Yes Ambulate Ambulation Observation IP General Gait Wide Based Gait Pattern Observation Ambulation Distance 40 (feet) Ambulation Assistive None Device Ambulation Ability Independent Balance Ability to Arise Able, uses arms to help Sitting Balance Steady, safe Standing Balance Steady, wide stance Dynamic Sitting Normal Balance Ability Dynamic Standing Good Balance Ability Transfers Bed Transfer Ability Independent Chair Transfer Independent Ability Sit to Stand Bed Independent Transfer Ability Rehab PT IP prob,goals,plan Problems Date of Evaluation: 04/09/25 Rehab Potential Rehab Potential Innapropriate for Skilled Therapy Discharge Plan PT Discharge Plan Pt not appropriate for skilled acute care PT as pt presents IND with mobility at this time. Eval Complexity Eval Charge Codes 20868 - Moderate Complexity PHYSICIAN CERTIFICATION: I certify the specified therapy services for Henri Munguia are required, authorized, and reviewed every 30 days.
--- NOTE | 2025-04-09 13:44 | HMH.OTEV ---
OT Evaluation Rehab OT IP Evaluation Start: 04/09/25 11:09 Freq: ONCE Status: Active Protocol: Document 04/09/25 13:38 [facility] (Rec: 04/09/25 13:44 [facility] [id number]) Rehab OT IP Assessment Subjective History Pt oriented x 2 on arrival. Pt agreeable to engage in therapy evaluation. Pt admitted on 04/08/25 due to altered mental status and Respiratory failure. History and physical: Henri Munguia is a 65-year-old male with a medical history significant for paranoid schizophrenia who resides at [facility] presents with altered mentation and somnolence. On my evaluation of patient, he was on BiPAP and encephalopathic due to hypercapnia. History was obtained via chart review and discussing with ED provider and nurses. Patient reportedly was up all night, took his normal morning medications this morning in addition to smoking 3 bowls of marijuana this morning and went to lay down. Patient was found to be somnolent, difficult to arouse and EMS was called. EMS gave Narcan and route without change in mentation. On arrival, VBG revealed pH 7.25 pCO2 57. He was initiated on BiPAP therapy with improvement in mentation, upon which he removed the BiPAP. Other workup includes WBC 3.3, sodium 128, CK1 86, UDS positive for THC, normal respiratory panel. He was given Solu-Medrol 125 mg, DuoNebs without significant improvement and repeat VBG. ED provider discussed case with me and I decided to admit patient for acute hypercapnic respiratory failure. Subjective Prior to being in the hospital, pt lived at [facility]. Pt claims normally he is independent with all ADLs and IADLs (cleaning his room) . Staff assists with medication management, laundry, and meals. Pt is independent with functional transfers requiring no AE. He is not on oxygen at baseline. Pt agreeable to engage in therapy evaluation. Therapist instructed patient on bed mobility to go from supine to sitting at eob with sba. Pt able to sit at eob for ~6 minutes in order to engage in lower body dressing by donning socks and shoes independently. Pt demonstrated good dynamic sitting balance and sba. While putting on shoes, pt's o2 was monitored being on room air; his oxygen did drop to 85%. Therapist placed oxygen back on patient and his o2 recovered quickly to 92%. Pt then engaged in functional mobility task of ~ 100 feet with sba; pt demonstrated good activity tolerance and no lob noted. Pt returned to eob and went from sitting to supine with sba. Objective Patient Orientation Person,Birthday Right Upper WFL Extremity Gross ROM Left Upper Extremity WFL Gross ROM Bed Mobility bed mobility-scooting,bed mobility - supine/sit Assist Level Supervision/Stand by Transfer Training Sit/Stand Transfer Assist Level Supervision/Stand by Lower Body Dressing Standby Assistance Ability Rehab OT IP prob,goals,plan Problems Date of Evaluation: 04/09/25 Rehab Potential Rehab Potential Innapropriate for Skilled Therapy Discharge Plan OT Discharge Plan Pt appears to be at his baseline with functional transfers and ADL independence. Pt can return to [facility] once he is medically stable per physician. Eval Complexity Eval Charge Codes 97274 - Moderate Complexity PHYSICIAN CERTIFICATION: I certify the specified therapy services for Henri Munguia are required, authorized, and reviewed every 30 days.
[2025-04-09] MEDS: DIVALPROEX 250MG (EXTENDED-RELEASE) TABLET 500 MG PO ×2 (15:34→21:50)
[2025-04-09] MEDS: LEVOFLOXACIN/D5W 750 MG/150 ML 750 MG/150 ML PIGGYBACK 100 MG IV (16:24)
--- NOTE | 2025-04-09 17:39 | EXP.PN ---
Subjective *Date: 04/09/25 *Time: 17:39 Interval history: Patient feels better today, but desaturating on room air. Will monitor overnight after treatment of pneumonia to help to wean to room air. Exam Data for Last 24 hours Vital signs and Labs for Last 24 Hours: Temp Pulse Resp BP Pulse Ox O2 Del Method O2 Flow Rate 98.8 F 103 H 24 110/44 L 89 L Room Air 2 04/09/25 16:01 04/09/25 16:01 04/09/25 16:01 04/09/25 16:01 04/09/25 16:01 04/09/25 17:00 04/09/25 13:00 FiO2 21 04/08/25 22:00 Laboratory Results - last 24 hr 04/08/25 17:50: Procalcitonin 0.035 04/08/25 21:00: VBG pH 7.30 L, VBG pCO2 58.0 H, VBG pO2 39.4, VBG HCO3 28.2, VBG Total CO2 29.9 H, VBG O2 Saturation 72.3 H, VBG Base Excess 1.8, VBG Lactic Acid 4.1 H 04/08/25 22:38: NT-Pro-B Natriuret Pep 107 04/09/25 05:27: WBC 8.2 D, RBC 3.92 L, Hgb 12.1 L D, Hct 35.7 L, MCV 91.1, MCH 30.4, MCHC 33.3, RDW 12.5, Plt Count 172, MPV 9.4, Neut % (Auto) 77.4, Lymph % (Auto) 13.2, [place] % (Auto) 8.9, Eos % (Auto) 0.0 L, Baso % (Auto) 0.1, Neut # (Auto) 6.3, Lymph # (Auto) 1.1, [place] # (Auto) 0.7, Eos # (Auto) 0.0, Baso # (Auto) 0.0, Sodium 128 L, Potassium 4.8, Chloride 93 L, Carbon Dioxide 29, Anion Gap 10.8, BUN 12, Creatinine 1.10, Estimated Creat Clear 83, Estimated GFR 68, Est GFR ( Amer) 82, Glucose 63 L D, Calcium 9.1, Magnesium 1.9, Total Bilirubin 0.4, AST 26, ALT 16, Alkaline Phosphatase 61, Total Protein 6.3, Albumin 3.4 L D, Globulin 2.9, Albumin/Globulin Ratio 1.2 04/09/25 07:45: VBG pH 7.40, VBG pCO2 43.7, VBG pO2 138.4 H, VBG HCO3 26.2, VBG Total CO2 27.6 H, VBG O2 Saturation 99.1 H, VBG Base Excess 1.4, VBG Lactic Acid 3.6 H I & O for Last 24 hours: Intake & Output 04/06/25 04/07/25 04/08/25 04/09/25 23:59 23:59 23:59 23:59 Intake Total 720 / 720 1416 / 1416 Output Total 1950 / 1950 1900 / 1900 Balance -1230 / -1230 -484 / -484 Weight 84.5 kg 85.7 kg Microbiology Reports for the Last 24 Hours: Microbiology 04/09/25 11:30 Sputum - Expectorated Sputum Gram Stain - Final Constitutional Constitutional: no acute distress *Routine HEENT Exam Head: Present normocephalic Eye: Present EOMI and PERRL ENT: Present mucous membranes moist *Routine Neck Exam Neck: Present supple; Absent lymphadenopathy *Routine Respiratory Exam Respiratory: Present CTA bilaterally *Routine Cardiovascular Exam Cardiovascular: Present RRR *Routine Abdominal Exam Abdominal: Present soft and normoactive bowel sounds; Absent tenderness *Routine Extremities Exam Extremities: Absent cyanosis, clubbing or edema *Routine Skin Exam Skin: Present warm; Absent rash *Routine Neurological Exam Neurological: Present alert and oriented X3 Assessment and Plan *Assessment and plan (1) Acute hypercapnic respiratory failure: Status: Acute Category: Medical Code(s): J96.02 - Acute respiratory failure with hypercapnia (2) Schizo affective schizophrenia: Status: Acute Category: Medical Code(s): F25.9 - Schizoaffective disorder, unspecified Plan Henri Munguia is a 65-year-old male with a medical history significant for paranoid schizophrenia who resides at [facility] presents with altered mentation and somnolence. On my evaluation of patient, he was on BiPAP and encephalopathic due to hypercapnia. History was obtained via chart review and discussing with ED provider and nurses. Patient reportedly was up all night, took his normal morning medications this morning in addition to smoking 3 bowls of marijuana this morning and went to lay down. Patient was found to be somnolent, difficult to arouse and EMS was called. EMS gave Narcan and route without change in mentation. On arrival, VBG revealed pH 7.25 pCO2 57. He was initiated on BiPAP therapy with improvement in mentation, upon which he removed the BiPAP. Other workup includes WBC 3.3, sodium 128, CK1 86, UDS positive for THC, normal respiratory panel. He was given Solu-Medrol 125 mg, DuoNebs without significant improvement and repeat VBG. ED provider discussed case with me and I decided to admit patient for acute hypercapnic respiratory failure. #Acute, hypoxic hypercapnic respiratory failure #Community-acquired pneumonia #Cannabinoid use disorder #Polypharmacy ? Patient became somnolent, encephalopathic after taking his morning medications and and taking multiple THC/CBD Gummies. ? Initial VBG showed acute hypercapnia, placed on BiPAP with with improvement in CO2 narcosis and mentation. ? CXR on 04/08/2025 shows right upper lobe pneumonia. ? Suspect cannabinoid use/hypersomnolence contributing to hypercapnic respiratory failure in addition to pneumonia. However, medication review suggests multiple psychotropic medications also likely contributing. ? Today, patient feels better with normalized mentation. However, continues to desaturate on room air. Requiring 2 L nasal cannula, will monitor overnight after treatment of pneumonia to help wean to room air. ? Discussed with pulmonology, started Advair twice daily. DuoNebs as needed. ? Continue levofloxacin 750 mg daily. #Paranoid schizophrenia #Seizure disorder ? Hold home fluphenazine, continue home olanzapine 20 mg nightly, Depakote 500 mg 3 times daily, benztropine 0.5 mg twice daily. #BPH ? Continue home tamsulosin. Full code DVT prophylaxis: Lovenox 40 mg
--- NOTE | 2025-04-09 17:57 | PC.NURSE ---
Report called to Toshia Hahn RN. Patient being transported to M/S room 208.
--- NOTE | 2025-04-09 18:08 | PC.NURSE ---
arrived from ICU by w/c
[2025-04-09] MEDS: SODIUM CHLORIDE 1,000MG TABLET 1000 MG PO (21:50)
[2025-04-09] MEDS: PANTOPRAZOLE 40MG TABLET 40 MG PO (21:50)
[2025-04-09] MEDS: OLANZapine 5 MG ODT TABLET 20 MG SL (21:50)
[2025-04-09] MEDS: PRAZOSIN 1MG CAP 2 MG PO (21:50)
[2025-04-10] VITALS (8 sets, daily range): BP systolic 110–138; BP diastolic 32–88; PULSE 72–121; RESP 16–18; TEMP 36.8–37.1; O2SAT 90–98; BMI 24.5
--- NOTE | 2025-04-10 05:12 | PC.NURSE ---
Alert and oriented. No complaints this shift. Uses urinal. Room air with no issues. Rested well. Bed alarm on. Call light in reach.
[2025-04-10 06:34] LABS: Hematocrit 38.0 % (42.0-52.0); Hemoglobin 12.6 g/dL (14.1-18.0); Immature Granulocytes % 0.6 %; Mean Corpuscular HGB Conc 33.2 g/dL (31.8-35.4); Mean Corpuscular Hemoglobin 30.4 pg (27.0-31.2); Mean Corpuscular Volume 91.8 fl (80-94); Nucleated Red Blood Cells % 0 %; Platelet Count 178 K/mm3 (142-424); Red Blood Count 4.14 M/mm3 (4.60-6.20); Red Cell Distribution Width-SD 43.2 fL; White Blood Count 8.2 K/mm3 (4.8-10.8)
[2025-04-10 06:47] LABS: Alanine Aminotransferase 14 U/L (12-78); Albumin Level 3.5 g/dl (3.5-5.0); Albumin/Globulin Ratio 1.2 (1.1-1.8); Alkaline Phosphatase 69 U/L (38-126); Anion Gap 11.4 mEq/L (5-15); Aspartate Amino Transferase 25 U/L (17-59); Bilirubin,Total 0.4 mg/dl (0.2-1.3); Blood Urea Nitrogen 14 mg/dl (9-20); Calcium 9.3 mg/dl (8.4-10.2); Carbon Dioxide 31 mmol/L (22.0-30.0); Chloride 94 mmol/L (98-107); Creatinine Clearance Estimated 69 mL/min (50-200); Creatinine,Serum 1.30 mg/dl (0.66-1.25); Estimated Glomerular Filt Rate 56 ml/min (>60); GFR (African American) 67 ML/MIN (>60); Globulin 3.0 g/dL (1.3-3.2); Glucose 80 mg/dl (74-100); Magnesium 2.2 mg/dl (1.6-2.3); Potassium 4.4 mmoL/L (3.5-5.1); Sodium 132 mmol/L (136-145); Total Protein,Serum 6.5 g/dl (6.3-8.2)
[2025-04-10] MEDS: METHYLPREDNISOLONE SOD SUCC 40MG VIAL 40 MG IV (08:58)
[2025-04-10] MEDS: TAMSULOSIN 0.4MG CAPSULE 0.4 MG PO (08:58)
[2025-04-10] MEDS: SODIUM CHLORIDE 1,000MG TABLET 1000 MG PO ×2 (08:58→13:50)
[2025-04-10] MEDS: DIVALPROEX 250MG (EXTENDED-RELEASE) TABLET 500 MG PO ×2 (08:58→13:50)
--- NOTE | 2025-04-10 12:22 | EXP.PULM.PN ---
Subjective *Date: 04/10/25 *Time: 12:22 Interval history: No acute respiratory events overnight. Patient denies any new respiratory complaint. Admits tolerating inhaler well with improved symptoms. Pulmonology Exam Inpatient Vital signs and Labs for Last 24 Hours: Temp Pulse Resp BP Pulse Ox O2 Del Method O2 Flow Rate 98.2 F 72 18 138/88 90 L Room Air 2 04/10/25 08:00 04/10/25 08:00 04/10/25 08:00 04/10/25 08:00 04/10/25 08:15 04/10/25 08:15 04/09/25 13:00 FiO2 21 04/08/25 22:00 Laboratory Results - last 24 hr 04/10/25 05:48: WBC 8.2, RBC 4.14 L, Hgb 12.6 L, Hct 38.0 L, MCV 91.8, MCH 30.4, MCHC 33.2, RDW 12.8, Plt Count 178, MPV 9.5, Neut % (Auto) 62.1, Lymph % (Auto) 28.7, [place] % (Auto) 8.4, Eos % (Auto) 0.1, Baso % (Auto) 0.1, Neut # (Auto) 5.1, Lymph # (Auto) 2.4, [place] # (Auto) 0.7, Eos # (Auto) 0.0, Baso # (Auto) 0.0, Sodium 132 L, Potassium 4.4, Chloride 94 L, Carbon Dioxide 31 H, Anion Gap 11.4, BUN 14, Creatinine 1.30 H, Estimated Creat Clear 69, Estimated GFR 56 L, Est GFR ( Amer) 67, Glucose 80, Calcium 9.3, Magnesium 2.2 D, Total Bilirubin 0.4, AST 25, ALT 14, Alkaline Phosphatase 69, Total Protein 6.5, Albumin 3.5, Globulin 3.0, Albumin/Globulin Ratio 1.2 Temp Pulse Resp BP Pulse Ox O2 Del Method FiO2 97.2 F L 72 13 152/99 H 95 Room Air 21 04/08/25 09:10 04/08/25 11:00 04/08/25 11:31 04/08/25 11:31 04/08/25 11:00 04/08/25 09:10 04/08/25 10:59 Laboratory Results - last 24 hr 04/08/25 09:10: WBC 3.3 L, RBC 4.31 L, Hgb 13.5 L, Hct 39.0 L, MCV 90.5, MCH 31.3 H, MCHC 34.6, RDW 12.0, Plt Count 180, MPV 8.9, Neut % (Auto) 34.3 L, Lymph % (Auto) 51.4 H, [place] % (Auto) 12.2 H, Eos % (Auto) 1.5, Baso % (Auto) 0.3, Neut # (Auto) 1.1 L, Lymph # (Auto) 1.7, [place] # (Auto) 0.4, Eos # (Auto) 0.1, Baso # (Auto) 0.0, Sodium 128 L, Potassium 5.1, Chloride 92 L, Carbon Dioxide 28, Anion Gap 13.1, BUN 10, Creatinine 1.20, Estimated Creat Clear 81, Estimated GFR 61, Est GFR ( Amer) 74, Glucose 106 H, Calcium 9.1, Total Bilirubin 0.5, AST 31, ALT 16, Alkaline Phosphatase 74, Total Creatine Kinase 186 H, Troponin I < 0.01, Total Protein 6.9, Albumin 3.8, Globulin 3.1, Albumin/Globulin Ratio 1.2, Free T4 1.08, Salicylates < 1.0 L, Acetaminophen < 10 L, Total Valproic Acid 75.5, Plasma/Serum Alcohol < 10, HCV Ab LAI w/Rflx PCR Qn Negative, HIV Ag/Ab Combo Qual Negative 04/08/25 09:18: VBG pH 7.25 L, VBG pCO2 57.0 H, VBG pO2 44.1 H, VBG HCO3 24.5, VBG Total CO2 26.3, VBG O2 Saturation 73.6 H, VBG Base Excess -2.6 L, VBG Lactic Acid 1.2 04/08/25 09:45: Urine Color Yellow, Urine Appearance Clear, Urine pH 7.0, Ur Specific [place] 1.015, Urine Protein Negative, Urine Glucose (UA) Negative, Urine Ketones Negative, Urine Blood Negative, Urine Nitrate Negative, Urine Bilirubin Negative, Urine Urobilinogen 1.0, Ur Leukocyte Esterase Negative, Urine RBC None, Urine WBC Occasional, Ur Squamous Epith Cells None, Urine Bacteria Trace, Urine Opiates Screen Negative, Urine Methadone Screen Negative, Ur Barbituates Screen Negative, Ur Phencyclidine Scrn Negative, Ur Amphetamines Screen Negative, U Benzodiazepines Scrn Negative, Urine Cocaine Screen Negative, U Marijuana (THC) Screen Positive H 04/08/25 11:15: VBG pH 7.27 L, VBG pCO2 67.0 H, VBG pO2 34.2, VBG HCO3 29.9, VBG Total CO2 32.0 H, VBG O2 Saturation 60.3, VBG Base Excess 3.0 H, VBG Lactic Acid 1.4 I & O for Labs for Last 24 Hours: Intake & Output 04/07/25 04/08/25 04/09/25 04/10/25 23:59 23:59 23:59 23:59 Intake Total 720 / 720 1566 / 1746 180 / 180 Output Total 1950 / 1950 2300 / 2300 Balance -1230 / -1230 -734 / -554 180 / 180 Weight 186 lb 4.65 oz 188 lb 14.978 oz 185 lb 4.8 oz Intake & Output 04/05/25 04/06/25 04/07/25 04/08/25 23:59 23:59 23:59 23:59 Weight 200 lb Microbiology Reports for the Last 24 Hours: Microbiology 04/09/25 11:30 Sputum - Expectorated Sputum Gram Stain - Final Constitutional: Present mild distress Head: Present normocephalic and atraumatic ENT: Present normal exam, normal oropharynx and mucous membranes moist Neck: Present normal inspection and full ROM Respiratory: Present prolonged expiratory phase, respiratory distress and able to speak in complete sentences Cardiac: Present S1/S2, Tachycardia and radial pulses present GI: Present soft and distention; Absent tenderness or guarding Skin: Present intact; Absent cyanosis or jaundice Neuro: Present alert, awake and oriented x 3 Extremities: Present normal inspection; Absent clubbing or cyanosis Psychiatric: Present normal affect and cooperative Assessment and Plan *Assessment and plan (1) Acute hypercapnic respiratory failure: Status: Acute Category: Medical Code(s): J96.02 - Acute respiratory failure with hypercapnia (2) Pneumonia: Status: Acute Category: Medical Code(s): J18.9 - Pneumonia, unspecified organism Plan Mr. Álvarez is a 65-year-old male resident of [facility] presented to the ER with worsening respiratory distress pulmonary was called for further evaluation and management. Much of the history is obtained from chart review. Patient lethargic confused not responding appropriately to verbal commands during my examination. Afebrile. Leukopenia. Hemodynamically stable. Hypercarbia upon admission the pH is 7.27 and pCO2 57.0. Flu Rhino RSV COVID respiratory viral PCR panel negative. Chest x-ray upon admission left lung marsh clear. Concern for right upper and middle lobe airspace disease. No dense consolidative changes noted. No hyperinflation noted on chest x-ray PA Patient was initial noninvasive ventilator therapy in the ER, refused and was eventually switched to high flow nasal cannula. Upon admission to ICU patient has been compliant with his noninvasive ventilatory therapy. Admit current smoking, greater than [id number] smoking history. Not using any inhalers or oxygen supplementation at baseline. Admits personal history of allergies. Interval update: No acute respiratory vents overnight. Tolerating without NIV. Intermittently needing oxygen supplementation. Much improved symptoms with Advair inhaler. Plan: Advair 500 inhaler along with albuterol/DuoNebs 4 times daily as needed Continue oxygen supplementation to maintain O2 saturation above 90% and above Wean steroids to prednisone 40 mg daily to complete a total of 5-day course Levofloxacin 750 mg IV daily x 5 days. Follow-up with sputum culture results. Thank you for involving pulmonary in this patient care. 6-minute walk testing prior to discharge. Will follow-up patient in pulmonary clinic 1 to 2 weeks postdischarge.
--- NOTE | 2025-04-10 14:30 | P.DS_ITS ---
General Admission date:: 04/08/25 HPI HPI HPI: Henri Munguia is a 65-year-old male with a medical history significant for paranoid schizophrenia who resides at [facility] presents with altered mentation and somnolence. On my evaluation of patient, he was on BiPAP and encephalopathic due to hypercapnia. History was obtained via chart review and discussing with ED provider and nurses. Patient reportedly was up all n ight, took his normal morning medications this morning in addition to smoking 3 bowls of marijuana this morning and went to lay down. Patient was found to be somnolent, difficult to arouse and EMS was called. EMS gave Narcan and route without change in mentation. On arrival, VBG revealed pH 7.25 pCO2 57. He was initiated on BiPAP therapy with improvement in mentation, upon which he removed the BiPAP. Other workup includes WBC 3.3, sodium 128, CK1 86, UDS positive for THC, normal respiratory panel. He was given Solu-Medrol 125 mg, DuoNebs without significant improvement and repeat VBG. ED provider discussed case with me and I decided to admit patient for acute hypercapnic respiratory failure. Hospital Course Hospital Course Hospital Course: Henri Munguia is a 65-year-old male with a medical history significant for paranoid schizophrenia who resides at [facility] presents with altered mentation and somnolence. On my evaluation of patient, he was on BiPAP and encephalopathic due to hypercapnia. History was obtained via chart review and discussing with ED provider and nurses. Patient reportedly was up all night, took his normal morning medications this morning in addition to smoking 3 bowls of marijuana this morning and went to lay down. Patient was found to be somnolent, difficult to arouse and EMS was called. EMS gave Narcan and route without change in mentation. On arrival, VBG revealed pH 7.25 pCO2 57. He was initiated on BiPAP therapy with improvement in mentation, upon which he removed the BiPAP. Other workup includes WBC 3.3, sodium 128, CK1 86, UDS positive for THC, normal respiratory panel. He was given Solu-Medrol 125 mg, DuoNebs without significant improvement and repeat VBG. ED provider discussed case with me and I decided to admit patient for acute hypercapnic respiratory failure. #Acute, hypoxic hypercapnic respiratory failure #Acute metabolic encephalopathy #Community-acquired pneumonia #Cannabinoid use disorder #Polypharmacy ? Patient became somnolent, encephalopathic after taking his morning medications and then taking multiple THC/CBD Gummies. ? Initial VBG showed acute hypercapnia, placed on BiPAP with with improvement in CO2 narcosis and mentation. ? CXR on 04/08/2025 shows right upper lobe pneumonia. ? Suspect cannabinoid use/hypersomnolence contributing to hypercapnic respiratory failure in addition to pneumonia. However, medication review suggests multiple psychotropic medications also likely contributing. ? Clinically improved with levofloxacin. Patient feels better with normalized mentation, pleasant. Initially desaturated on room air, but after treatment of pneumonia weaned to room air with appropriate saturations on walk test. ? Discussed with pulmonology, discharged with Advair twice daily and levofloxacin 750 mg and prednisone 40 mg for 2 more days. ? Follow-up with pulmonology within 2 weeks. #Paranoid schizophrenia #Seizure disorder ? Fluphenazine discontinued due to concern of polypharmacy, sedation. Continue home olanzapine 20 mg nightly, Depakote 500 mg 3 times daily, benztropine 0.5 mg twice daily. #BPH ? Continue home tamsulosin. Total time spent on discharge: 33 minutes on chart review, counseling, documentation, and direct care with patient. Exam Data for Last 24 hours Vital signs and Labs for Last 24 Hours: Temp Pulse Resp BP Pulse Ox O2 Del Method O2 Flow Rate 98.6 F 95 H 18 124/69 96 Room Air 2 04/10/25 12:00 04/10/25 12:00 04/10/25 12:00 04/10/25 12:00 04/10/25 13:00 04/10/25 13:10 04/09/25 13:00 FiO2 21 04/08/25 22:00 Laboratory Results - last 24 hr 04/10/25 05:48: WBC 8.2, RBC 4.14 L, Hgb 12.6 L, Hct 38.0 L, MCV 91.8, MCH 30.4, MCHC 33.2, RDW 12.8, Plt Count 178, MPV 9.5, Neut % (Auto) 62.1, Lymph % (Auto) 28.7, [place] % (Auto) 8.4, Eos % (Auto) 0.1, Baso % (Auto) 0.1, Neut # (Auto) 5.1, Lymph # (Auto) 2.4, [place] # (Auto) 0.7, Eos # (Auto) 0.0, Baso # (Auto) 0.0, Sodium 132 L, Potassium 4.4, Chloride 94 L, Carbon Dioxide 31 H, Anion Gap 11.4, BUN 14, Creatinine 1.30 H, Estimated Creat Clear 69, Estimated GFR 56 L, Est GFR ( Amer) 67, Glucose 80, Calcium 9.3, Magnesium 2.2 D, Total Bilirubin 0.4, AST 25, ALT 14, Alkaline Phosphatase 69, Total Protein 6.5, Albumin 3.5, Globulin 3.0, Albumin/Globulin Ratio 1.2 I & O for Last 24 hours: Intake & Output 04/07/25 04/08/25 04/09/25 04/10/25 23:59 23:59 23:59 23:59 Intake Total 720 / 720 1566 / 1746 450 / 450 Output Total 1950 / 1950 2300 / 2300 1100 / 1100 Balance -1230 / -1230 -734 / -554 -650 / -650 Weight 84.5 kg 85.7 kg 84.051 kg Microbiology Reports for the Last 24 Hours: Microbiology 04/09/25 11:30 Sputum - Expectorated Sputum Gram Stain - Final Constitutional Constitutional: no acute distress *Routine HEENT Exam Head: Present normocephalic Eye: Present EOMI and PERRL ENT: Present mucous membranes moist *Routine Neck Exam Neck: Present supple; Absent lymphadenopathy *Routine Respiratory Exam Respiratory: Present CTA bilaterally *Routine Cardiovascular Exam Cardiovascular: Present RRR *Routine Abdominal Exam Abdominal: Present soft and normoactive bowel sounds; Absent tenderness *Routine Extremities Exam Extremities: Absent cyanosis, clubbing or edema *Routine Skin Exam Skin: Present warm; Absent rash *Routine Neurological Exam Neurological: Present alert and oriented X3 Results Data Completed and Pending Labs on day of discharge: Labs from last 24 hours 04/10/25 05:48 WBC 8.2 RBC 4.14 L Hgb 12.6 L Hct 38.0 L MCV 91.8 MCH 30.4 MCHC 33.2 RDW 12.8 Plt Count 178 MPV 9.5 Neut % (Auto) 62.1 Lymph % (Auto) 28.7 [place] % (Auto) 8.4 Eos % (Auto) 0.1 Baso % (Auto) 0.1 Neut # (Auto) 5.1 Lymph # (Auto) 2.4 [place] # (Auto) 0.7 Eos # (Auto) 0.0 Baso # (Auto) 0.0 Sodium 132 L Potassium 4.4 Chloride 94 L Carbon Dioxide 31 H Anion Gap 11.4 BUN 14 Creatinine 1.30 H Estimated Creat Clear 69 Estimated GFR 56 L Est GFR ( Amer) 67 Glucose 80 Calcium 9.3 Magnesium 2.2 D Total Bilirubin 0.4 AST 25 ALT 14 Alkaline Phosphatase 69 Total Protein 6.5 Albumin 3.5 Globulin 3.0 Albumin/Globulin Ratio 1.2 DS: Diagnosis Discharge Diagnosis (1) Acute hypercapnic respiratory failure: Status: Acute Code(s): J96.02 - Acute respiratory failure with hypercapnia (2) Pneumonia: Status: Acute Code(s): J18.9 - Pneumonia, unspecified organism Meds Home Medications and Allergies Home Medications ?Medication ?Instructions ?Recorded ?Confirmed ?Type atorvastatin 10 mg tablet 10 mg PO HS 12/25/22 5 History benztropine 0.5 mg tablet 0.5 mg PO BID Parkinson's di sease 12/25/22 04/08/25 History divalproex 500 mg tablet,extended 500 mg PO TID Seizur es 12/25/22 04/08/25 History release 24 hr docusate sodium 50 mg capsule 100 mg PO BID 12/25/22 1 History fluticasone propionate 50 2 spray intranasal DAILY All ergy 12/25/22 04/08/25 History mcg/actuation nasal symptoms spray,suspension melatonin 3 mg tablet 6 mg PO HS 12/25/22 04/08/25 History omeprazole 40 mg capsule,delayed 40 mg PO DAILY Acid r eflux 12/25/22 04/08/25 History release prazosin 2 mg capsule 2 mg PO HS restless leg synd holly 12/25/22 04/08/25 History albuterol 90 mcg/actuation aerosol 180 mcg inhalation Q6HP PRN 01/16/23 04/08/25 History inhaler Shortness Of Breath magnesium hydroxide 400 mg/5 mL 30 ml PO BID PRN Const ipation 01/16/23 04/08/25 History oral suspension (Milk of Magnesia) ondansetron 4 mg disintegrating 4 mg PO TID PRN Nausea 01/16/23 04/08/25 History tablet cetirizine 10 mg tablet 10 mg PO HS 04/08/25 5 History cholecalciferol (vitamin D3) 1,250 1,250 mcg PO WEEKLY Monday04/08/25 04/08/25 History mcg (50,000 unit) capsule olanzapine 20 mg tablet 20 mg PO HS 04/08/25 5 History sodium chloride 1,000 mg soluble 1,000 mg PO TID 04/0804/08/25 History tablet tamsulosin 0.4 mg capsule (Flomax) 0.4 mg PO DAILY 01/2404/08/25 History fluticasone 500 mcg-salmeterol 50 1 inh inhalation BID RT #60 ea 04/10/25 Rx mcg/dose blistr powdr for inhalation levofloxacin 750 mg tablet 750 mg PO 1100 2 days #2 ta bs 04/10/25 Rx prednisone 20 mg tablet 40 mg (2 x 20 mg) PO DAILY 2 days 04/10/25 Rx #4 tabs New Prescriptions to Start Prescriptions: fluticasone propion-salmeterol Bernardo Salazar levofloxacin Martin,Bernardo prednisone Bernardo Salazar Allergies Allergy/AdvReac Type Severity Reaction Status Date / Time No Known Allergies Allergy Verified 12/25/22 18:07 Discharge Plan Disposition Patient Disposition: Home, Self-Care Condition: Fair Discharge Order Discharge Orders: Discharge Order (Routine); Ordered 04/10/25 Ordered By: Bernardo Salazar Follow up Plan Follow up with: Ambreen Candelario MD [Physician, Pulmonology] - 05/12/25 1:00 pm Prescriptions/Medication Reconciliation: New fluticasone propion-salmeterol 500-50 mcg/dose Blister With Device 1 inh inhalation BIDRT Qty: 60 0RF levofloxacin 750 mg Tablet 750 mg PO 1100 2 Days Qty: 2 0RF prednisone 20 mg tablet 40 mg PO DAILY 2 Days Qty: 4 0RF Continued benztropine 0.5 mg Tablet 0.5 mg PO BID atorvastatin 10 mg Tablet 10 mg PO HS docusate sodium 50 mg Capsule 100 mg PO BID melatonin 3 mg Tablet 6 mg PO HS omeprazole 40 mg Capsule,Delayed Release(Dr/Ec) 40 mg PO DAILY divalproex 500 mg Tablet Extended Release 24 Hr 500 mg PO TID fluticasone propionate 50 mcg/actuation [place],Suspension 2 spray INTRANASAL DAILY Rx Instructions: administer into each nostril prazosin 2 mg Capsule 2 mg PO HS magnesium hydroxide [Milk of Magnesia] 400 mg/5 mL Suspension 30 ml PO BID PRN (Reason: Constipation) albuterol 90 mcg/actuation Aerosol 180 mcg INHALATION Q6HP PRN (Reason: Shortness Of Breath) ondansetron 4 mg Tablet,Disintegrating 4 mg PO TID PRN (Reason: Nausea) cetirizine 10 mg Tablet 10 mg PO HS tamsulosin [Flomax] 0.4 mg Capsule 0.4 mg PO DAILY sodium chloride 1,000 mg tablet,soluble 1,000 mg PO TID cholecalciferol (vitamin D3) 1,250 mcg (50,000 unit) Capsule 1,250 mcg PO WEEKLY olanzapine 20 mg tablet 20 mg PO HS Discontinued fluphenazine HCl 10 mg Tablet 10 mg PO BID Problem Reconciliation Problems Reviewed?: Yes Patient Discharge Instructions Print Language: Urdu Providers Primary Care Provider: Gian Wagoner Admit Provider: Bernardo Salazar Attending Provider: Bernardo Salazar
--- NOTE | 2025-04-11 10:01 | SW/DCPLANNER ---
Spoke with patient's reproductive healthcare assistant at [facility]. Patient's reproductive healthcare assistant stated that he is doing well. Patient's reproductive healthcare assistant stated that they are aware of his appointments. Patient's reproductive healthcare assistant stated that he got his medicine. Patient's reproductive healthcare assistant stated that they have no concerns or questions at this time. Juanita Lin
== END 2025-04-10 15:54 | disposition home or self-care (01) | DRG 193 ==
LOC: ER 10:14 → ICU 12:30 → 2ND 04-09 17:39
PROVIDERS: Internal Medicine Pulmonary Disease; Admitting Provider Student in an Organized Health Care Education/Training Program; Emergency Provider Student in an Organized Health Care Education/Training Program; PCP Emergency Medicine; Visit Provider Student in an Organized Health Care Education/Training Program
DX: J18.9 Pneumonia, unspecified organism (principal); G92.8 Other toxic encephalopathy; J96.02 Acute respiratory failure with hypercapnia; J96.01 Acute respiratory failure with hypoxia; F20.0 Paranoid schizophrenia; E87.1 Hypo-osmolality and hyponatremia; F12.10 Cannabis abuse, uncomplicated; T40.715A Adverse effect of cannabis, initial encounter; T50.915A Adverse effect of multiple unspecified drugs, medicaments and biological substances, initial encounter; G40.909 Epilepsy, unspecified, not intractable, without status epilepticus; F17.210 Nicotine dependence, cigarettes, uncomplicated; N40.0 Benign prostatic hyperplasia without lower urinary tract symptoms; Y92.129 Unspecified place in nursing home as the place of occurrence of the external cause; Z79.899 Other long term (current) drug therapy
CPT/HCPCS: 0223U; 36415; 70450; 71045; 80053; 80164; 80307; 80320; 80329; 81001; 82140; 82550; 82803; 83735; 83880; 84145; 84439; 84443; 84484; 85025; 86803; 87070; 87205; 87389; 87631; 89220; 93005; 94618; 94640; 94760; 97162; 97166; 99285; J1650; J1956; J2919

== ENCOUNTER → 2025-06-18 09:00 | Outpatient (CLI) | payer MEDICARE, OTHER, SELFPAY ==
--- NOTE | 2025-06-18 09:30 | CT_ITS ---
FINAL REPORT CLINICAL HISTORY: lung cancer screening current smoker 1/2ppd x5o years FINDINGS: CT CHEST LOW DOSE SCREENING HISTORY: Screening exam for lung cancer. DOSE: CTDI vol: 2.90 mGy, DLP: 112.81 mGy*cm TECHNIQUE: Axial CT without IV contrast administration using low dose protocol. This study was performed with techniques to keep radiation doses as low as reasonably achievable, (ALARA). Individualized dose reduction techniques using automated exposure control or adjustment of mA and/or kV according to the patient's size were employed. There is a 2 mm nodule in the right lower lobe on image 57 of series 4. Patchy airspace opacities are seen with nodularity in the left lower lobe and lingula, favor pneumonia. There is no dominant suspicious nodule. No pleural or pericardial effusion is seen. No adenopathy or mass lesion is present. IMPRESSION: Patchy airspace disease at the left lung base, favor acute inflammatory. Recommend close interval follow-up. LUNG RADS CATEGORL 0 RECOMMENDATION: 2-3-month follow-up. Reviewed, Interpreted and Dictated by Lm Laughlin MD Transcribed by Davina Zimmerman Authenticated and [facility]
[2025-06-18 10:20] VITALS: PULSE 70; PULSE 71
[2025-06-18] MEDS: ALBUTEROL 0.083% 2.5 MG/3 ML NEB IH (10:20)
--- NOTE | 2025-06-18 10:20 | PC.NURSE ---
Patient tried leaving after a few loops of PFT. I talked him into doing a Pre and Post to be able to send for the doctor.
== END ==
LOC: RAD 09:02
PROVIDERS: PCP Emergency Medicine; Visit Provider Internal Medicine Pulmonary Disease
DX: Z12.2 Encounter for screening for malignant neoplasm of respiratory organs (principal); F17.210 Nicotine dependence, cigarettes, uncomplicated; R91.1 Solitary pulmonary nodule; R91.8 Other nonspecific abnormal finding of lung field; R06.09 Other forms of dyspnea
CPT/HCPCS: 71271; 94010; 94618; 94640

== ENCOUNTER 2025-06-23 12:21 | Outpatient (CLI) | payer MEDICARE, OTHER, SELFPAY ==
--- NOTE | 2025-06-23 12:24 | XR_ITS ---
FINAL REPORT CLINICAL HISTORY: SOB COMPARISON: 04/08/2025 FINDINGS: 2 views of the chest were obtained . The heart is normal in size. The mediastinum is within normal limits. There are emphysematous changes. The lungs are otherwise clear. There is no pneumothorax. Osseous structures are unremarkable. IMPRESSION: No acute cardiopulmonary process. Reviewed, Interpreted and Dictated by Lm Laughlin MD Transcribed by Davina Zimmerman Authenticated and [facility]
== END 2025-06-23 23:59 ==
LOC: RAD 12:22
PROVIDERS: PCP Emergency Medicine; Visit Provider Internal Medicine Pulmonary Disease
DX: R06.02 Shortness of breath (principal)
CPT/HCPCS: 71046